=== PATIENT | female | born 1995 | race Caucasian/White ===

== ENCOUNTER 2017-10-10 12:18 | Inpatient (IN) | payer BC ==
[2017-10-10] MEDS ORDERED: Sodium Chloride 0.9% 10 ML Syringe FLUSH PRN (20:46)
[2017-10-10] MEDS ORDERED: Nalbuphine 20 MG/1 ML Amp IVPUSH PRN (20:46)
[2017-10-10] MEDS: Lactated Ringers 1,000 ML IV SCH ×2 (21:30→23:11)
[2017-10-11] MEDS ORDERED: diphenhydrAMINE 50 MG/ML SDV IVPUSH PRN (05:57)
[2017-10-11] MEDS ORDERED: fentaNYL 100 MCG/2 ML SDV EPIDUR PRN (05:57)
[2017-10-11] MEDS ORDERED: fentaNYL 100 MCG/2 ML SDV ONE (05:58)
[2017-10-11] MEDS ORDERED: Bupivacaine/fentaNYL/NS 100 ML Bag EPIDUR SCH (06:00)
--- NOTE | 2017-10-11 06:25 | PCM.PREANE ---
Preanesthetic Assessment - Anesthesia/Transfusion/Family Hx Anesthesia History: Prior Anesthesia Without Reaction Family History of Anesthesia Reaction: No Transfusion History: No Prior Transfusion(s) - Review of Systems General: Malaise Pulmonary: No Symptoms Cardiovascular: No Symptoms Gastrointestinal: No Symptoms Neurological: No Symptoms Other: Reports: Anxiety - Physical Assessment Pulse: 68 O2 Sat by Pulse Oximetry: 98 Respiratory Rate: 16 Blood Pressure: 140/60 Temperature: 36.6 C Vital Signs: Last Vital Signs Temp 36.6 C 10/10/17 20:47 Pulse 81 10/10/17 20:47 Resp 16 10/10/17 20:47 BP 115/75 10/10/17 20:47 Pulse Ox 98 10/10/17 20:47 Height: 1.57 m Weight: 111.669 kg ASA Class: 2 Mental Status: Alert & Oriented x3 Airway Class: Mallampati = 2 Dentition: Reports: Normal Dentition Thyro-Mental Finger Breadths: 3 Mouth Opening Finger Breadths: 3 ROM/Head Extension: Full Lungs: Clear to Auscultation, Normal Respiratory Effort Cardiovascular: Regular Rate, Regular Rhythm - Lab Values: Laboratory Last Values WBC 13.53 K/mm3 (3.98-10.04) H 10/10/17 21:12 RBC 4.43 M/mm3 (3.98-5.22) 10/10/17 21:12 Hgb 12.3 gm/L (11.2-15.7) 10/10/17 21:12 Hct 37.2 % (34.1-44.9) 10/10/17 21:12 MCV 84.0 fl (79.4-94.8) 10/10/17 21:12 MCH 27.8 pg (25.6-32.2) 10/10/17 21:12 MCHC 33.1 g/dl (32.2-35.5) 10/10/17 21:12 RDW Std Deviation 44.0 fL (36.4-46.3) 10/10/17 21:12 Plt Count 291 K/mm3 (182-369) 10/10/17 21:12 MPV 11.0 fl (9.4-12.3) 10/10/17 21:12 Blood Type AB POSITIVE 10/10/17 21:12 Gel Antibody Screen Negative 10/10/17 21:12 - Allergies Allergies/Adverse Reactions: Allergies Allergy/AdvReac Type Severity Reaction Status Date / Time No Known Allergies Allergy Verified 10/10/17 20:42 - Anesthesia Plan Pre-Op Medication Ordered: None - Acknowledgements Anesthesia Type Planned: Epidural Pt an Appropriate Candidate for the Planned Anesthesia: Yes Alternatives and Risks of Anesthesia Discussed w Pt/Guardian: Yes Pt/Guardian Understands and Agrees with Anesthesia Plan: Yes PreAnesthesia Questionnaire HEENT History: Reports: Other (See Below) Other HEENT History: wears glasses Gastrointestinal History: Reports: GERD 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: , 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 Psychiatric History: Reports: Anxiety Other Psychiatric History: denies depression - Past Surgical History HEENT Surgical History: Reports: Tonsillectomy - SUBSTANCE USE Smoking Status *Q: Never Smoker Tobacco Use Within Last Twelve Months: No Second Hand Smoke Exposure: No Recreational Drug Use History: No - CURRENT (IN HOUSE) MEDS Current Meds: Current Medications Diphenhydramine HCl (Benadryl) 25 mg IVPUSH Q6H PRN PRN Reason: Itching Ephedrine Sulfate (Ephedrine Sulfate) 5 mg IVPUSH ASDIRECTED PRN PRN Reason: HYPOTENTSION Fentanyl (Sublimaze) 100 mcg EPIDUR Q3H PRN PRN Reason: PAIN Fentanyl/Bupivacaine HCl (Fentanyl/Bupivacaine/Ns 2 Mcg-0.125% 100 Ml) 100 ml EPIDUR ASDIRECTED CECILE Last Admin: 10/11/17 06:14 Dose: 100 ml Lactated Ringer's (Ringers, Lactated) 1,000 mls @ 125 mls/hr IV ASDIRECTED CECILE Last Admin: 10/10/17 23:11 Dose: 125 mls/hr Oxytocin 20 unit/ Lactated (Ringer's) 1,002 mls @ 6.01 mls/hr IV TITRATE CECILE; 2 MUNITS/MIN PRN Reason: Protocol Nalbuphine HCl (Nubain) 10 mg IVPUSH Q2H PRN PRN Reason: Pain (moderate 4-6) Sodium Chloride (Saline Flush) 10 ml FLUSH ASDIRECTED PRN PRN Reason: Keep Vein Open Discontinued Medications Fentanyl (Sublimaze) Confirm Administered Dose 100 mcg .ROUTE .STK-MED ONE Stop: 10/11/17 05:59 Last Admin: 10/11/17 06:13 Dose: 100 mcg
[2017-10-11] MEDS: Lactated Ringers 1,000 ML IV SCH ×4 (06:51→10:39)
[2017-10-11] MEDS: ePHEDrine 50 MG/ML SDV IVPUSH PRN ×2 (07:04→07:19)
--- NOTE | 2017-10-11 08:07 | PCM.LDHP ---
L&D History of Present Illness - General Date of Service: 10/11/17 Admit Problem/Dx: Patient Status Order with Admit Dx/Problem 10/10/17 20:47 Patient Status [ADT] Routine Admission Diagnosis/Problem Admission Diagnosis/Problem Source of Information: Patient History Limitations: Reports: No Limitations - History of Present Illness Introduction:: 22-year-old MALISSA 10/05/17 at 40 weeks and 5 days admitted for induction now 40 weeks and 6 days. GBS is negative cervix this morning at time of amniotomy at 00 753 was 5 cm dilated 100% effaced anterior soft 0 station clear fluid category 1 heart rate. See record for labs. 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 : 3 Para: 0 (0020) Psychiatric History: Reports: Anxiety Other Psychiatric History: denies depression - Past Surgical History HEENT Surgical History: Reports: Tonsillectomy Social & Family History - Family History Family Medical History: Noncontributory - Tobacco Use Smoking Status *Q: Never Smoker Second Hand Smoke Exposure: No - Caffeine Use Caffeine Use: Reports: Coffee Caffeine Use Comment: one per day - Recreational Drug Use Recreational Drug Use: No H&P Review of Systems - Review of Systems: Review Of Systems: See Below General: Reports: No Symptoms HEENT: Reports: No Symptoms Pulmonary: Reports: No Symptoms Cardiovascular: Reports: No Symptoms Gastrointestinal: Reports: No Symptoms Genitourinary: Reports: No Symptoms Musculoskeletal: Reports: No Symptoms Skin: Reports: No Symptoms Psychiatric: Reports: No Symptoms Neurological: Reports: No Symptoms Hematologic/Lymphatic: Reports: No Symptoms Immunologic: Reports: No Symptoms L&D Exam - Exam Exam: See Below - Vital Signs Vital Signs: Last Vital Signs Temp 97.9 F 10/11/17 06:24 Pulse 68 10/11/17 06:24 Resp 16 10/11/17 06:24 BP 140/60 10/11/17 06:24 Pulse Ox 98 10/11/17 06:24 Weight: 246 lb 3 oz - OB Specific Fundal Height In cm: 39 Contraction Duration (sec): 60 Contraction Frequency (min): 5 Contraction Intensity: Moderate Movement: Active Heart Tones: Present Heart Tones per Min: 150 Heart Rate (FHR) Variability: Moderate (6-25 bmp) Presentation: Vertex - Hodges Score Hodges Score Cervix Position: Anterior Hodges Score Consistency: Soft Hodges Score Effacement: >80% Hodges Score Dilation: > 5 cm Hodges Score 's Station: -1 ,0 Hodges Score Total: 12 - Exam General: Alert, Oriented HEENT: Conjunctiva Clear, Mucosa Moist & Nye, TMs Clear, PERRLA Neck: Supple, Trachea Midline Lungs: Clear to Auscultation, Normal Respiratory Effort Cardiovascular: Regular Rate, Regular Rhythm GI/Abdominal Exam: Normal Bowel Sounds, Soft, Non-Tender, No Organomegaly, No Distention, No Abnormal Bruit, No Mass, Pelvis Stable Genitourinary: Normal external exam, Normal bimanual exam, Normal speculum exam Extremities: Normal Inspection, Normal Range of Motion, Non-Tender, No Pedal Edema, Normal Capillary Refill Skin: Warm, Dry, Intact Neurological: Reflexes Equal Bilateral Psychiatric: Alert, Normal Affect, Normal Mood - Patient Data Lab Results Last 24 hrs: Laboratory Results - last 24 hr 10/10/17 10/10/17 Range/Units 21:12 21:12 WBC 13.53 H (3.98-10.04) K/mm3 RBC 4.43 (3.98-5.22) M/mm3 Hgb 12.3 (11.2-15.7) gm/L Hct 37.2 (34.1-44.9) % MCV 84.0 (79.4-94.8) fl MCH 27.8 (25.6-32.2) pg MCHC 33.1 (32.2-35.5) g/dl RDW Std Deviation 44.0 (36.4-46.3) fL Plt Count 291 (182-369) K/mm3 MPV 11.0 (9.4-12.3) fl Blood Type AB POSITIVE Gel Antibody Screen Negative Result Diagrams: 10/10/17 21:12 - Problem List (1) 40 weeks gestation of SNOMED Code(s): 56976008 ICD Code: Z3A.40 - 40 WEEKS GESTATION OF Status: Acute Current Visit: Yes Problem List Initiated/Reviewed/Updated: No Orders Last 24hrs: Active Orders 24 hr Category Date Time Status Patient Status [ADT] Routine ADT 10/10/17 20:47 Active Activity as Tolerated [RC] PFP Care 10/10/17 20:47 Active Communication Order [RC] ASDIRECTED Care 10/10/17 20:47 Active Communication Order [RC] ASDIRECTED Care 10/11/17 05:57 Active Cooling Warming Measures [RC] ASDIRECTED Care 10/11/17 05:57 Active Notify Provider [RC] ASDIRECTED Care 10/11/17 05:57 Active Notify Provider [RC] PFP Care 10/10/17 20:47 Active Notify Provider [RC] PRN Care 10/10/17 20:47 Active Oxygen Therapy [RC] ASDIRECTED Care 10/11/17 05:57 Active Peripheral IV Care [RC] . DIRECTED Care 10/10/17 20:48 Active Pulse Oximetry [RC] ASDIRECTED Care 10/11/17 05:57 Active Urinary Catheter Assessment [RC] ASDIRECTED Care 10/10/17 20:46 Active Verify Patient Consent Obtain [RC] ASDIRECTED Care 10/11/17 05:57 Active Vital Signs [RC] PER UNIT ROUTINE Care 10/10/17 20:47 Active Vital Signs [RC] Q1H Care 10/11/17 05:57 Active Bupivacaine/fentaNYL/NS [fentaNYL/Bupivacaine/NS 2 MCG- Med 10/11/17 06:00 Active 0.125% 100 ML] 100 ml EPIDUR ASDIRECTED Lactated Ringers [Ringers, Lactated] 1,000 ml Med 10/10/17 21:00 Active IV ASDIRECTED Nalbuphine [Nubain] Med 10/10/17 20:46 Active 10 mg IVPUSH Q2H PRN Oxytocin [Pitocin] 20 unit Med 10/10/17 21:00 Active Lactated Ringers [Ringers, Lactated] 1,000 ml IV TITRATE Sodium Chloride 0.9% [Saline Flush] Med 10/10/17 20:46 Active 10 ml FLUSH ASDIRECTED PRN diphenhydrAMINE [Benadryl] Med 10/11/17 05:57 Active 25 mg IVPUSH Q6H PRN ePHEDrine [ePHEDrine Sulfate] Med 10/11/17 05:57 Active 5 mg IVPUSH ASDIRECTED PRN fentaNYL [Sublimaze] Med 10/11/17 05:57 Active 100 mcg EPIDUR Q3H PRN Electronic Heart Tones Ext w TOCO [WOMSER] Oth 10/10/17 20:47 Ordered Routine Electronic Heart Tones Internal [WOMSER] Per Unit Oth 10/10/17 20:47 Ordered Routine Peripheral IV Insertion Adult [OM.PC] Routine Oth 10/10/17 20:47 Ordered Resuscitation Status Routine Resus Stat 10/10/17 20:46 Ordered Medication Orders Diphenhydramine HCl (Benadryl) 25 mg IVPUSH Q6H PRN PRN Reason: Itching Ephedrine Sulfate (Ephedrine Sulfate) 5 mg IVPUSH ASDIRECTED PRN PRN Reason: HYPOTENTSION Last Admin: 10/11/17 07:19 Dose: 5 mg Admin: 10/11/17 07:04 Dose: 5 mg Fentanyl (Sublimaze) 100 mcg EPIDUR Q3H PRN PRN Reason: PAIN Fentanyl/Bupivacaine HCl (Fentanyl/Bupivacaine/Ns 2 Mcg-0.125% 100 Ml) 100 ml EPIDUR ASDIRECTED CECILE Last Admin: 10/11/17 06:14 Dose: 100 ml Lactated Ringer's (Ringers, Lactated) 1,000 mls @ 125 mls/hr IV ASDIRECTED CECILE Last Admin: 10/11/17 07:24 Dose: 999 mls/hr Infusion: 10/11/17 07:24 Dose: 125 mls/hr Admin: 10/11/17 06:51 Dose: 125 mls/hr Infusion: 10/11/17 06:51 Dose: 125 mls/hr Admin: 10/10/17 23:11 Dose: 125 mls/hr Infusion: 10/10/17 23:11 Dose: 125 mls/hr Admin: 10/10/17 21:30 Dose: 125 mls/hr Oxytocin 20 unit/ Lactated (Ringer's) 1,002 mls @ 6.01 mls/hr IV TITRATE CECILE; 2 MUNITS/MIN PRN Reason: Protocol Nalbuphine HCl (Nubain) 10 mg IVPUSH Q2H PRN PRN Reason: Pain (moderate 4-6) Sodium Chloride (Saline Flush) 10 ml FLUSH ASDIRECTED PRN PRN Reason: Keep Vein Open
[2017-10-11] MEDS ORDERED: Bupivacaine 0.25% 10 ML SDV ONE (10:00)
--- NOTE | 2017-10-11 12:06 | PCM.SN ---
- Free Text/Narrative Note: Patient is complete and pushing.
[2017-10-11] MEDS ORDERED: Misoprostol 200 MCG Tab ONE (12:22)
--- NOTE | 2017-10-11 12:35 | PCM.DEL ---
L & D Note - General Info Date of Service: 10/11/17 Mother's Due Date: 10/05/17 - Delivery Note Labor: Spontaneous, Augmented by ARM, Augmented by Oxytocin Cervical Ripening Method: Misoprostil Delivery Outcome: Livebirth (Female liveborn at 1218 hrs. on Monday10/11/17 right occiput posterior) Infant Delivery Method: Spontaneous Vaginal Delivery-Single Delivery Mode: Spontaneous Presentation: Right Occiput Posterior (ROP) Nuchal Cord: None Prep: Povidone-Iodine (Betadine Anesthesia Type: Epidural Amniotic Fluid Description: Meconium Stained Episiotomy Type: None Laceration: 1st Degree (Bilateral medial labia minora not bleeding not sutured at level of urethral meatus) Placenta: Intact, Spontaneous (Three-vessel cord intact central cord insertion examined discarded delivered at 1221 hrs. Monday10/11/17 [place]) Cord: 3 Vessels Estimated Blood Loss: 500 (cytotec 200 mcg x2 buccal) Resuscitation Needed: No [place]: Suctioned, Bulb Syringe, Stimulated, Warmed, [place] Used, Warmer Used Provider: Rylan Alcantar Score 1 min: 8 Score 5 min: 9 - Patient Data Vitals - Most Recent: Last Vital Signs Temp 97.9 F 10/11/17 06:24 Pulse 68 10/11/17 06:24 Resp 16 10/11/17 06:24 BP 140/60 10/11/17 06:24 Pulse Ox 98 10/11/17 06:24 Weight - Most Recent: 246 lb 3 oz Lab Results Last 24 Hours: Laboratory Results - last 24 hr 10/10/17 10/10/17 Range/Units 21:12 21:12 WBC 13.53 H (3.98-10.04) K/mm3 RBC 4.43 (3.98-5.22) M/mm3 Hgb 12.3 (11.2-15.7) gm/L Hct 37.2 (34.1-44.9) % MCV 84.0 (79.4-94.8) fl MCH 27.8 (25.6-32.2) pg MCHC 33.1 (32.2-35.5) g/dl RDW Std Deviation 44.0 (36.4-46.3) fL Plt Count 291 (182-369) K/mm3 MPV 11.0 (9.4-12.3) fl Blood Type AB POSITIVE Gel Antibody Screen Negative Med Orders - Current: Current Medications Diphenhydramine HCl (Benadryl) 25 mg IVPUSH Q6H PRN PRN Reason: Itching Ephedrine Sulfate (Ephedrine Sulfate) 5 mg IVPUSH ASDIRECTED PRN PRN Reason: HYPOTENTSION Last Admin: 10/11/17 07:19 Dose: 5 mg Fentanyl (Sublimaze) 100 mcg EPIDUR Q3H PRN PRN Reason: PAIN Fentanyl/Bupivacaine HCl (Fentanyl/Bupivacaine/Ns 2 Mcg-0.125% 100 Ml) 100 ml EPIDUR ASDIRECTED CECILE Last Admin: 10/11/17 06:14 Dose: 100 ml Lactated Ringer's (Ringers, Lactated) 1,000 mls @ 125 mls/hr IV ASDIRECTED CECILE Last Admin: 10/11/17 10:39 Dose: 300 mls/hr Oxytocin 20 unit/ Lactated (Ringer's) 1,002 mls @ 6.01 mls/hr IV TITRATE CECILE; 2 MUNITS/MIN PRN Reason: Protocol Last Titration: 10/11/17 09:46 Dose: 6 munits/min, 18.03 mls/hr Oxytocin 20 unit/ Lactated (Ringer's) 1,002 mls @ 6.01 mls/hr IV TITRATE CECILE; 2 MUNITS/MIN PRN Reason: Protocol Nalbuphine HCl (Nubain) 10 mg IVPUSH Q2H PRN PRN Reason: Pain (moderate 4-6) Sodium Chloride (Saline Flush) 10 ml FLUSH ASDIRECTED PRN PRN Reason: Keep Vein Open Discontinued Medications Fentanyl (Sublimaze) Confirm Administered Dose 100 mcg .ROUTE .STK-MED ONE Stop: 10/11/17 05:59 Last Admin: 10/11/17 06:13 Dose: 100 mcg Misoprostol (Cytotec) Confirm Administered Dose 400 mcg .ROUTE .STK-MED ONE Stop: 10/11/17 12:23 - Problem List & Annotations (1) 40 weeks gestation of SNOMED Code(s): 23937001 Code(s): Z3A.40 - 40 WEEKS GESTATION OF Status: Acute Current Visit: Yes (2) Occiput posterior presentation of fetus SNOMED Code(s): 56892720 Code(s): O64.0XX0 - OBSTRUCTED LABOR DUE TO INCMPL ROTATION OF HEAD, UNSP Status: Acute Current Visit: Yes (3) Meconium stained amniotic fluid, delivered, current hospitalization SNOMED Code(s): 545704095 Code(s): O77.0 - LABOR AND DELIVERY COMPLICATED BY MECONIUM IN AMNIOTIC FLUID Status: Acute Current Visit: Yes - Problem List Review Problem List Initiated/Reviewed/Updated: No - My Orders Last 24 Hours: My Active Orders 10/10/17 20:46 Urinary Catheter Assessment [RC] ASDIRECTED Nalbuphine [Nubain] 10 mg IVPUSH Q2H PRN Sodium Chloride 0.9% [Saline Flush] 10 ml FLUSH ASDIRECTED PRN Resuscitation Status Routine 10/10/17 20:47 Patient Status [ADT] Routine Activity as Tolerated [RC] PFP Communication Order [RC] ASDIRECTED Notify Provider [RC] PFP Notify Provider [RC] PRN Vital Signs [RC] PER UNIT ROUTINE Electronic Heart Tones Ext w TOCO [WOMSER] Routine Electronic Heart Tones Internal [WOMSER] Per Unit Routine Peripheral IV Insertion Adult [OM.PC] Routine 10/10/17 20:48 Peripheral IV Care [RC] . DIRECTED 10/10/17 21:00 Lactated Ringers [Ringers, Lactated] 1,000 ml IV ASDIRECTED Oxytocin [Pitocin] 20 unit Lactated Ringers [Ringers, Lactated] 1,000 ml IV TITRATE 10/11/17 08:15 Oxytocin [Pitocin] 20 unit Lactated Ringers [Ringers, Lactated] 1,000 ml IV TITRATE
[2017-10-11] MEDS ORDERED: Docusate Sodium 100 MG Cap PO PRN (12:41)
[2017-10-11] MEDS ORDERED: Benzocaine/Menthol 20%-0.5% Spray 56 GM Canister TOP PRN (12:41)
[2017-10-11] MEDS ORDERED: Acetaminophen 325 MG Tab PO PRN (12:41)
[2017-10-11] MEDS ORDERED: Witch Hazel Medicated Pads 100/Jar TOP PRN (12:41)
[2017-10-11] MEDS ORDERED: Lanolin 100% Cream 7 GM Tube TOP PRN (12:41)
[2017-10-11] MEDS ORDERED: Misoprostol 200 MCG Tab PO ONE (13:20)
[2017-10-11] MEDS: Ibuprofen 600 MG Tab PO PRN (16:15)
[2017-10-12] MEDS: Ibuprofen 600 MG Tab PO PRN ×3 (03:08→19:21)
--- NOTE | 2017-10-12 08:23 | PCM48HPAN ---
Post Anesthesia Note - EVALUATION WITHIN 48HRS OF ANESTHETIC Vital Signs in Normal Range: Yes Patient Participated in Evaluation: Yes Respiratory Function Stable: Yes Airway Patent: Yes Cardiovascular Function Stable: Yes Hydration Status Stable: Yes Pain Control Satisfactory: Yes Nausea and Vomiting Control Satisfactory: Yes Mental Status Recovered: Yes - COMMENTS/OBSERVATIONS Free Text/Narrative:: Patient doing well resting in bed. Denies any backpain, residual numbenss/ tingling to LE, or headaches.
--- NOTE | 2017-10-12 08:44 | PCM.SN ---
- Free Text/Narrative Note: day 1 Afebrile, no cough or chest congestion, uterus involuting normally, no heavy vaginal bleeding, no leg cramping. Probably home tomorrow.
[2017-10-13] MEDS: Ibuprofen 600 MG Tab PO PRN (06:59)
--- NOTE | 2017-10-13 07:05 | PCM.DCSUM1 ---
Discharge Summary - Hospital Course Free Text/Narrative:: [facility] LIVE L/D Delivery Note Patient Name: DAPHNEY WHITE Date of : 89 Patient Status: Inpatient Attending Provider: Rylan Alcantar Date: 10/11/17 12:29 Initialization Date: 10/11/17 12:29 L & D Note - General Info Date of Service: 10/11/17 Mother's Due Date: 10/05/17 - Delivery Note Labor: Spontaneous, Augmented by ARM, Augmented by Oxytocin Cervical Ripening Method: Misoprostil Delivery Outcome: Livebirth (Female liveborn at 1218 hrs. on Monday10/11/17 right occiput posterior) Delivery Method: Spontaneous Vaginal Delivery-Single Delivery Mode: Spontaneous Presentation: Right Occiput Posterior (ROP) Nuchal Cord: None Prep: Povidone-Iodine (Betadine Anesthesia Type: Epidural Amniotic Fluid Description: Meconium Stained Episiotomy Type: None Laceration: 1st Degree (Bilateral medial labia minora not bleeding not sutured at level of urethral meatus) Placenta: Intact, Spontaneous (Three-vessel cord intact central cord insertion examined discarded delivered at 1221 hrs. Monday10/11/17 Daina) Cord: 3 Vessels Estimated Blood Loss: 500 (cytotec 200 mcg x2 buccal) Resuscitation Needed: No : Suctioned, Bulb Syringe, Stimulated, Warmed, [place] Used, Warmer Used Provider: Rylan Alcantar Score 1 min: 8 Score 5 min: 9 - Patient Data Vitals - Most Recent: Last Vital Signs Temp 97.9 F 10/11/17 06:24 Pulse 68 10/11/17 06:24 Resp 16 10/11/17 06:24 BP 140/60 10/11/17 06:24 Pulse Ox 98 10/11/17 06:24 Weight - Most Recent: 246 lb 3 oz Lab Results Last 24 Hours: Laboratory Results - last 24 hr 10/10/17 10/10/17 Range/Units 21:12 21:12 WBC 13.53 H (3.98-10.04) K/mm3 RBC 4.43 (3.98-5.22) M/mm3 Hgb 12.3 (11.2-15.7) gm/L Hct 37.2 (34.1-44.9) % MCV 84.0 (79.4-94.8) fl MCH 27.8 (25.6-32.2) pg MCHC 33.1 (32.2-35.5) g/dl RDW Std Deviation 44.0 (36.4-46.3) fL Plt Count 291 (182-369) K/mm3 MPV 11.0 (9.4-12.3) fl Blood Type AB POSITIVE Gel Antibody Screen Negative Med Orders - Current: Current Medications Diphenhydramine HCl (Benadryl) 25 mg IVPUSH Q6H PRN PRN Reason: Itching Ephedrine Sulfate (Ephedrine Sulfate) 5 mg IVPUSH ASDIRECTED PRN PRN Reason: HYPOTENTSION Last Admin: 10/11/17 07:19 Dose: 5 mg Fentanyl (Sublimaze) 100 mcg EPIDUR Q3H PRN PRN Reason: PAIN Fentanyl/Bupivacaine HCl (Fentanyl/Bupivacaine/Ns 2 Mcg-0.125% 100 Ml) 100 ml EPIDUR ASDIRECTED CECILE Last Admin: 10/11/17 06:14 Dose: 100 ml Lactated Ringer's (Ringers, Lactated) 1,000 mls @ 125 mls/hr IV ASDIRECTED CECILE Last Admin: 10/11/17 10:39 Dose: 300 mls/hr Oxytocin 20 unit/ Lactated (Ringer's) 1,002 mls @ 6.01 mls/hr IV TITRATE CECILE; 2 MUNITS/MIN PRN Reason: Protocol Last Titration: 10/11/17 09:46 Dose: 6 munits/min, 18.03 mls/hr Oxytocin 20 unit/ Lactated (Ringer's) 1,002 mls @ 6.01 mls/hr IV TITRATE CECILE; 2 MUNITS/MIN PRN Reason: Protocol Nalbuphine HCl (Nubain) 10 mg IVPUSH Q2H PRN PRN Reason: Pain (moderate 4-6) Sodium Chloride (Saline Flush) 10 ml FLUSH ASDIRECTED PRN PRN Reason: Keep Vein Open Discontinued Medications Fentanyl (Sublimaze) Confirm Administered Dose 100 mcg .ROUTE .STK-MED ONE Stop: 10/11/17 05:59 Last Admin: 10/11/17 06:13 Dose: 100 mcg Misoprostol (Cytotec) Confirm Administered Dose 400 mcg .ROUTE .Deal In [place]-MED ONE Stop: 10/11/17 12:23 - Problem List & Annotations (1) 40 weeks gestation of SNOMED Code(s): 65319493 Code(s): Z3A.40 - 40 WEEKS GESTATION OF Status: Acute Current Visit: Yes (2) Occiput posterior presentation of fetus SNOMED Code(s): 88076973 Code(s): O64.0XX0 - OBSTRUCTED LABOR DUE TO INCMPL ROTATION OF HEAD, UNSP Status: Acute Current Visit: Yes (3) Meconium stained amniotic fluid, delivered, current hospitalization SNOMED Code(s): 500218264 Code(s): O77.0 - LABOR AND DELIVERY COMPLICATED BY MECONIUM IN AMNIOTIC FLUID Status: Acute Current Visit: Yes - Problem List Review Problem List Initiated/Reviewed/Updated: No - My Orders Last 24 Hours: My Active Orders 10/10/17 20:46 Urinary Catheter Assessment [RC] ASDIRECTED Nalbuphine [Nubain] 10 mg IVPUSH Q2H PRN Sodium Chloride 0.9% [Saline Flush] 10 ml FLUSH ASDIRECTED PRN Resuscitation Status Routine 10/10/17 20:47 Patient Status [ADT] Routine Activity as Tolerated [RC] PFP Communication Order [RC] ASDIRECTED Notify Provider [RC] PFP Notify Provider [RC] PRN Vital Signs [RC] PER UNIT ROUTINE Electronic Heart Tones Ext w TOCO [WOMSER] Routine Electronic Heart Tones Internal [WOMSER] Per Unit Routine Peripheral IV Insertion Adult [OM.PC] Routine 10/10/17 20:48 Peripheral IV Care [RC] . DIRECTED 10/10/17 21:00 Lactated Ringers [Ringers, Lactated] 1,000 ml IV ASDIRECTED Oxytocin [Pitocin] 20 unit Lactated Ringers [Ringers, Lactated] 1,000 ml IV TITRATE 10/11/17 08:15 Oxytocin [Pitocin] 20 unit Lactated Ringers [Ringers, Lactated] 1,000 ml IV TITRATE HPI Initial Comments: [facility] LIVE L/D Delivery Note Patient Name: DAPHNEY WHITE Date of : 89 Patient Status: Inpatient Attending Provider: Rylan Alcantar Date: 10/11/17 12:29 Initialization Date: 10/11/17 12:29 L & D Note - General Info Date of Service: 10/11/17 Mother's Due Date: 10/05/17 - Delivery Note Labor: Spontaneous, Augmented by ARM, Augmented by Oxytocin Cervical Ripening Method: Misoprostil Delivery Outcome: Livebirth (Female liveborn at 1218 hrs. on Monday10/11/17 right occiput posterior) Infant Delivery Method: Spontaneous Vaginal Delivery-Single Delivery Mode: Spontaneous Presentation: Right Occiput Posterior (ROP) Nuchal Cord: None Prep: Povidone-Iodine (Betadine Anesthesia Type: Epidural Amniotic Fluid Description: Meconium Stained Episiotomy Type: None Laceration: 1st Degree (Bilateral medial labia minora not bleeding not sutured at level of urethral meatus) Placenta: Intact, Spontaneous (Three-vessel cord intact central cord insertion examined discarded delivered at 1221 hrs. Monday10/11/17 Daina) Cord: 3 Vessels Estimated Blood Loss: 500 (cytotec 200 mcg x2 buccal) Resuscitation Needed: No Center Cross: Suctioned, Bulb Syringe, Stimulated, Warmed, [place] Used, Warmer Used Provider: Rylan Alcantar Score 1 min: 8 Score 5 min: 9 - Patient Data Vitals - Most Recent: Last Vital Signs Temp 97.9 F 10/11/17 06:24 Pulse 68 10/11/17 06:24 Resp 16 10/11/17 06:24 BP 140/60 10/11/17 06:24 Pulse Ox 98 10/11/17 06:24 Weight - Most Recent: 246 lb 3 oz Lab Results Last 24 Hours: Laboratory Results - last 24 hr 10/10/17 10/10/17 Range/Units 21:12 21:12 WBC 13.53 H (3.98-10.04) K/mm3 RBC 4.43 (3.98-5.22) M/mm3 Hgb 12.3 (11.2-15.7) gm/L Hct 37.2 (34.1-44.9) % MCV 84.0 (79.4-94.8) fl MCH 27.8 (25.6-32.2) pg MCHC 33.1 (32.2-35.5) g/dl RDW Std Deviation 44.0 (36.4-46.3) fL Plt Count 291 (182-369) K/mm3 MPV 11.0 (9.4-12.3) fl Blood Type AB POSITIVE Gel Antibody Screen Negative Med Orders - Current: Current Medications Diphenhydramine HCl (Benadryl) 25 mg IVPUSH Q6H PRN PRN Reason: Itching Ephedrine Sulfate (Ephedrine Sulfate) 5 mg IVPUSH ASDIRECTED PRN PRN Reason: HYPOTENTSION Last Admin: 10/11/17 07:19 Dose: 5 mg Fentanyl (Sublimaze) 100 mcg EPIDUR Q3H PRN PRN Reason: PAIN Fentanyl/Bupivacaine HCl (Fentanyl/Bupivacaine/Ns 2 Mcg-0.125% 100 Ml) 100 ml EPIDUR ASDIRECTED CECILE Last Admin: 10/11/17 06:14 Dose: 100 ml Lactated Ringer's (Ringers, Lactated) 1,000 mls @ 125 mls/hr IV ASDIRECTED CECILE Last Admin: 10/11/17 10:39 Dose: 300 mls/hr Oxytocin 20 unit/ Lactated (Ringer's) 1,002 mls @ 6.01 mls/hr IV TITRATE CECILE; 2 MUNITS/MIN PRN Reason: Protocol Last Titration: 10/11/17 09:46 Dose: 6 munits/min, 18.03 mls/hr Oxytocin 20 unit/ Lactated (Ringer's) 1,002 mls @ 6.01 mls/hr IV TITRATE CECILE; 2 MUNITS/MIN PRN Reason: Protocol Nalbuphine HCl (Nubain) 10 mg IVPUSH Q2H PRN PRN Reason: Pain (moderate 4-6) Sodium Chloride (Saline Flush) 10 ml FLUSH ASDIRECTED PRN PRN Reason: Keep Vein Open Discontinued Medications Fentanyl (Sublimaze) Confirm Administered Dose 100 mcg .ROUTE .STK-MED ONE Stop: 10/11/17 05:59 Last Admin: 10/11/17 06:13 Dose: 100 mcg Misoprostol (Cytotec) Confirm Administered Dose 400 mcg .ROUTE .STK-MED ONE Stop: 10/11/17 12:23 - Problem List & Annotations (1) 40 weeks gestation of SNOMED Code(s): 25968808 Code(s): Z3A.40 - 40 WEEKS GESTATION OF Status: Acute Current Visit: Yes (2) Occiput posterior presentation of fetus SNOMED Code(s): 69241257 Code(s): O64.0XX0 - OBSTRUCTED LABOR DUE TO INCMPL ROTATION OF HEAD, UNSP Status: Acute Current Visit: Yes (3) Meconium stained amniotic fluid, delivered, current hospitalization SNOMED Code(s): 433119891 Code(s): O77.0 - LABOR AND DELIVERY COMPLICATED BY MECONIUM IN AMNIOTIC FLUID Status: Acute Current Visit: Yes - Problem List Review Problem List Initiated/Reviewed/Updated: No - My Orders Last 24 Hours: My Active Orders 10/10/17 20:46 Urinary Catheter Assessment [RC] ASDIRECTED Nalbuphine [Nubain] 10 mg IVPUSH Q2H PRN Sodium Chloride 0.9% [Saline Flush] 10 ml FLUSH ASDIRECTED PRN Resuscitation Status Routine 10/10/17 20:47 Patient Status [ADT] Routine Activity as Tolerated [RC] PFP Communication Order [RC] ASDIRECTED Notify Provider [RC] PFP Notify Provider [RC] PRN Vital Signs [RC] PER UNIT ROUTINE Electronic Heart Tones Ext w TOCO [WOMSER] Routine Electronic Heart Tones Internal [WOMSER] Per Unit Routine Peripheral IV Insertion Adult [OM.PC] Routine 10/10/17 20:48 Peripheral IV Care [RC] . DIRECTED 10/10/17 21:00 Lactated Ringers [Ringers, Lactated] 1,000 ml IV ASDIRECTED Oxytocin [Pitocin] 20 unit Lactated Ringers [Ringers, Lactated] 1,000 ml IV TITRATE 10/11/17 08:15 Oxytocin [Pitocin] 20 unit Lactated Ringers [Ringers, Lactated] 1,000 ml IV TITRATE Brief History: [facility] LIVE . L/D Delivery Note. Patient Name: DAPHNEY WHITE [facility] Record Number: [id number]. Date of : Patient Status: Inpatient. Attending Provider: Rylan Alcantar Number: [id number]. Date: 10/11/17 12:29Initialization Date: 10/11/17 12:29. L & D Note. - General Info. Date of Service: 10/11/17. Mother's Due Date: 10/05/17. - Delivery Note. Labor: Spontaneous, Augmented by ARM, Augmented by Oxytocin. Cervical Ripening Method: Misoprostil. Delivery Outcome: Livebirth ( Female liveborn at 1218 hrs. on Monday10/11/17 right occiput posterior). Infant Delivery Method: Spontaneous Vaginal Delivery-Single. Infant Delivery Mode: Spontaneous. Presentation: Right Occiput Posterior (ROP). Nuchal Cord: None. Prep: Povidone-Iodine (Betadine. Anesthesia Type: Epidural. Amniotic Fluid Description: Meconium Stained. Episiotomy Type: None. Laceration: 1st Degree (Bilateral medial labia minora not bleeding not sutured at level of urethral meatus). Placenta: Intact, Spontaneous (Three-vessel cord intact central cord insertion examined discarded delivered at 1221 hrs. Monday10/11/17 Daina). Cord: 3 Vessels. Estimated Blood Loss: 500 ( cytotec 200 mcg x2 buccal). Resuscitation Needed: No. Center Cross: Suctioned, Bulb Syringe, Stimulated, Warmed, [place] Used, Warmer Used. Provider : Rylan Alcantar. Score 1 min: 8. Score 5 min: 9. - Patient Data. Vitals - Most Recent: Last Vital Signs. Temp 97.9 F 10/11/17 06:24. Pulse 68 10/11/17 06:24. Resp 16 10/11/17 06:24. BP 140/60 10/11/17 06:24. Pulse Ox 98 10/11/17 06:24. Weight - Most Recent: 246 lb 3 oz. Lab Results Last 24 Hours: Laboratory Results - last 24 hr. 10/10/1711Range/Units. 21:1221:12. WBC 13.53 H (3.98-10.04) K/mm3. RBC 4.43 (3.98-5.22) M/mm3. Hgb 12.3 (11.2-15.7) gm/L. Hct 37.2 (34.1-44.9) %. MCV 84.0 (79.4-94.8) fl. MCH 27.8 (25.6-32.2) pg. MCHC 33.1 (32.2-35.5) g/dl. RDW Std Deviation 44.0 (36.4-46.3) fL. Plt Count 291 (182-369) K/mm3. MPV 11.0 (9.4-12.3) fl. Blood Type AB POSITIVE. Gel Antibody Screen Negative. Med Orders - Current: Current Medications. Diphenhydramine HCl (Benadryl) 25 mg IVPUSH Q6H PRN. PRN Reason: Itching. Ephedrine Sulfate (Ephedrine Sulfate) 5 mg IVPUSH ASDIRECTED PRN. PRN Reason: HYPOTENTSION. Last Admin: 10/11/17 07:19 Dose: 5 mg. Fentanyl (Sublimaze) 100 mcg EPIDUR Q3H PRN. PRN Reason: PAIN. Fentanyl/Bupivacaine HCl (Fentanyl/Bupivacaine/Ns 2 Mcg-0.125% 100 Ml) 100 ml EPIDUR ASDIRECTED CECILE. Last Admin: 10/11/17 06:14 Dose: 100 ml. Lactated Ringer's (Ringers, Lactated) 1,000 mls @ 125 mls/hr IV ASDIRECTED CECILE. Last Admin: 10/11/17 10:39 Dose: 300 mls/hr. Oxytocin 20 unit/ Lactated (Ringer's) 1,002 mls @ 6.01 mls/hr IV TITRATE CECILE; 2 MUNITS/MIN. PRN Reason: Protocol. Last Titration: 10/11/17 09:46 Dose: 6 munits/min, 18.03 mls/hr. Oxytocin 20 unit/ Lactated (Ringer's) 1,002 mls @ 6.01 mls/hr IV TITRATE CECILE; 2 MUNITS/ MIN. PRN Reason: Protocol. Nalbuphine HCl (Nubain) 10 mg IVPUSH Q2H PRN. PRN Reason: Pain (moderate 4-6). Sodium Chloride (Saline Flush) 10 ml FLUSH ASDIRECTED PRN. PRN Reason: Keep Vein Open. Discontinued Medications. Fentanyl (Sublimaze) Confirm Administered Dose 100 mcg .ROUTE .STK-MED ONE. Stop: 10/11/17 05:59. Last Admin: 10/11/17 06:13 Dose: 100 mcg. Misoprostol ( Cytotec) Confirm Administered Dose 400 mcg .ROUTE .STK-MED ONE. Stop: 10/11/17 12:23. - Problem List & Annotations. (1) 40 weeks gestation of . SNOMED Code(s): 37977881. Code(s): Z3A.40 - 40 WEEKS GESTATION OF Status: Acute Current Visit: Yes. (2) Occiput posterior presentation of fetus. SNOMED Code(s): 05766532. Code(s): O64.0XX0 - OBSTRUCTED LABOR DUE TO INCMPL ROTATION OF HEAD, UNSP Status: Acute Current Visit: Yes. (3) Meconium stained amniotic fluid, delivered, current hospitalization. SNOMED Code(s): 726665253. Code(s): O77.0 - LABOR AND DELIVERY COMPLICATED BY MECONIUM IN AMNIOTIC FLUID Status: Acute Current Visit: Yes. - Problem List Review. Problem List Initiated/Reviewed/Updated: No. - My Orders. Last 24 Hours: My Active Orders. 10/10/17 20:46. Urinary Catheter Assessment [RC] ASDIRECTED. Nalbuphine [Nubain] 10 mg IVPUSH Q2H PRN. Sodium Chloride 0.9% [ Saline Flush] 10 ml FLUSH ASDIRECTED PRN. Resuscitation Status Routine. 20:47. Patient Status [ADT] Routine. Activity as Tolerated [RC] PFP. Communication Order [RC] ASDIRECTED. Notify Provider [RC] PFP. Notify Provider [RC] PRN. Vital Signs [RC] PER UNIT ROUTINE. Electronic Heart Tones Ext w TOCO [WOMSER] Routine. Electronic Heart Tones Internal [ WOMSER] Per Unit Routine. Peripheral IV Insertion Adult [OM.PC] Routine. 10/10 20:48. Peripheral IV Care [RC] . DIRECTED. 10/10/17 21:00. Lactated Ringers [Ringers, Lactated] 1,000 ml IV ASDIRECTED. Oxytocin [Pitocin] 20 unit Lactated Ringers [Ringers, Lactated] 1,000 ml IV TITRATE. 10/11/17 08:15. Oxytocin [Pitocin] 20 unit Lactated Ringers [Ringers, Lactated] 1,000 ml IV TITRATE - Discharge Data Discharge Date: 10/13/17 Discharge Disposition: Home, Self-Care 01 Condition: Good - Discharge Diagnosis/Problem(s) (1) 40 weeks gestation of SNOMED Code(s): 64711912 ICD Code: Z3A.40 - 40 WEEKS GESTATION OF Status: Acute Current Visit: Yes (2) Occiput posterior presentation of fetus SNOMED Code(s): 28512957 ICD Code: O64.0XX0 - OBSTRUCTED LABOR DUE TO INCMPL ROTATION OF HEAD, UNSP Status: Acute Current Visit: Yes Qualifiers: Fetus number: single or unspecified fetus Qualified Code(s): O64.0XX0 - Obstructed labor due to incomplete rotation of head, not applicable or unspecified (3) Meconium stained amniotic fluid, delivered, current hospitalization SNOMED Code(s): 847087808 ICD Code: O77.0 - LABOR AND DELIVERY COMPLICATED BY MECONIUM IN AMNIOTIC FLUID Status: Acute Current Visit: Yes - Patient Summary/Data Complications: None Consults: None Hospital Course: Uneventful - Patient Instructions Diet: Regular Diet as Tolerated Driving: Do Not Drive (48 hours) Showering/Bathing: May Shower Notify Provider of: Fever, Increased Pain, Swelling and Redness, Drainage, Nausea and/or Vomiting - Discharge Plan Home Medications: Home Meds Acetaminophen [Tylenol] 650 mg PO Q6H PRN tablet 10/13/17 [Rx] Benzocaine/Menthol [Dermoplast Pain Relief [place]] 1 spray TOP ASDIRECTED PRN canister 10/13/17 [Rx] Docusate Sodium [Colace] 100 mg PO BID PRN cap 10/13/17 [Rx] Ibuprofen [IJD: Ibuprofen] 600 mg PO Q6H PRN tablet 10/13/17 [Rx] Lanolin [Lansinoh HPA] 1 applic TOP ASDIRECTED PRN tube 10/13/17 [Rx] Witch Helen [Tucks] 1 pad TOP ASDIRECTED PRN pad 10/13/17 [Rx] Referrals: Rylan Alcantar MD [Primary Care Provider] - (2 weeks) - Discharge Summary/Plan Comment DC Time >30 min.: No - Patient Data Vitals - Most Recent: Last Vital Signs Temp 97.7 F 10/13/17 06:23 Pulse 77 10/13/17 06:23 Resp 15 10/13/17 06:23 BP 133/85 10/13/17 06:23 Pulse Ox 100 10/13/17 06:23 Weight - Most Recent: 246 lb 3 oz I&O - Last 24 hours: Intake & Output 10/12/17 10/13/17 10/13/17 22:59 06:59 14:59 Intake Total 0 Balance 0 Lab Results - Last 24 hrs: Laboratory Results - last 24 hr 10/12/17 Range/Units 06:56 WBC 11.98 H (3.98-10.04) K/mm3 RBC 3.63 L (3.98-5.22) M/mm3 Hgb 10.0 L (11.2-15.7) gm/L Hct 31.4 L (34.1-44.9) % MCV 86.5 (79.4-94.8) fl MCH 27.5 (25.6-32.2) pg MCHC 31.8 L (32.2-35.5) g/dl RDW Std Deviation 45.8 (36.4-46.3) fL Plt Count 223 (182-369) K/mm3 MPV 10.7 (9.4-12.3) fl Neut % (Auto) 71.6 H (34.0-71.1) % Lymph % (Auto) 19.4 (19.3-51.7) % [place] % (Auto) 7.2 (4.7-12.5) % Eos % (Auto) 1.1 (0.7-5.8) Baso % (Auto) 0.3 (0.1-1.2) % Neut # (Auto) 8.58 H (1.56-6.13) K/mm3 Lymph # (Auto) 2.32 (1.18-3.74) K/mm3 [place] # (Auto) 0.86 H (0.24-0.36) K/mm3 Eos # (Auto) 0.13 (0.04-0.36) K/mm3 Baso # (Auto) 0.04 (0.01-0.08) K/mm3 Med Orders - Current: Current Medications Acetaminophen (Tylenol) 650 mg PO Q4H PRN PRN Reason: mild pain or fever Benzocaine/Menthol (Dermoplast Pain Relief [place]) 0 gm TOP ASDIRECTED PRN PRN Reason: Perineal Comfort Measure Last Admin: 10/11/17 16:10 Dose: 1 can Docusate Sodium (Colace) 100 mg PO BID PRN PRN Reason: Constipation Emollient Ointment (Lansinoh Hpa) 0 gm TOP ASDIRECTED PRN PRN Reason: Sore Nipples Ibuprofen (Motrin) 600 mg PO Q4H PRN PRN Reason: Mild pain or fever Last Admin: 10/13/17 06:59 Dose: 600 mg Witch Helen (Tucks) 1 pad TOP ASDIRECTED PRN PRN Reason: Hemorrhoid pain Last Admin: 10/11/17 16:10 Dose: 1 tub Discontinued Medications Diphenhydramine HCl (Benadryl) 25 mg IVPUSH Q6H PRN PRN Reason: Itching Ephedrine Sulfate (Ephedrine Sulfate) 5 mg IVPUSH ASDIRECTED PRN PRN Reason: HYPOTENTSION Last Admin: 10/11/17 07:19 Dose: 5 mg Fentanyl (Sublimaze) 100 mcg EPIDUR Q3H PRN PRN Reason: PAIN Fentanyl (Sublimaze) Confirm Administered Dose 100 mcg .ROUTE .STK-MED ONE Stop: 10/11/17 05:59 Last Admin: 10/11/17 06:13 Dose: 100 mcg Fentanyl/Bupivacaine HCl (Fentanyl/Bupivacaine/Ns 2 Mcg-0.125% 100 Ml) 100 ml EPIDUR ASDIRECTED CECILE Last Admin: 10/11/17 06:14 Dose: 100 ml Lactated Ringer's (Ringers, Lactated) 1,000 mls @ 125 mls/hr IV ASDIRECTED CECILE Last Admin: 10/11/17 10:39 Dose: 300 mls/hr Oxytocin 20 unit/ Lactated (Ringer's) 1,002 mls @ 6.01 mls/hr IV TITRATE CECILE; 2 MUNITS/MIN PRN Reason: Protocol Last Titration: 10/11/17 13:00 Dose: 250 mls/hr Oxytocin 20 unit/ Lactated (Ringer's) 1,002 mls @ 6.01 mls/hr IV TITRATE CECILE; 2 MUNITS/MIN PRN Reason: Protocol Misoprostol (Cytotec) Confirm Administered Dose 400 mcg .ROUTE .STK-MED ONE Stop: 10/11/17 12:23 Last Admin: 10/11/17 13:30 Dose: Not Given Misoprostol (Cytotec) 400 mcg PO BID ONE Stop: 10/11/17 13:21 Last Admin: 10/11/17 12:25 Dose: 400 mcg Nalbuphine HCl (Nubain) 10 mg IVPUSH Q2H PRN PRN Reason: Pain (moderate 4-6) Sodium Chloride (Saline Flush) 10 ml FLUSH ASDIRECTED PRN PRN Reason: Keep Vein Open *Q Meaningful Use (DIS) - VTE *Q VTE Criteria *Q: - Stroke *Q Stroke Criteria *Q: - AMI *Q AMI Criteria *Q:
== END 2017-10-13 11:00 | disposition home or self-care (01) | DRG 560 ==
LOC: JD.OB 12:18 → OBSVTOIN 10-11 12:18 → JD.OB 10-11 12:18
PROVIDERS: ADMIT Obstetrics & Gynecology; ATTEND Obstetrics & Gynecology
PROC: 10E0XZZ Delivery of Products of Conception, External Approach (ICD-10-PCS; principal; 2017-10-11)
PROC: 10907ZC Drainage of Amniotic Fluid, Therapeutic from Products of Conception, Via Natural or Artificial Opening (ICD-10-PCS; 2017-10-11)
PROC: 00HU33Z Insertion of Infusion Device into Spinal Canal, Percutaneous Approach (ICD-10-PCS; 2017-10-11)
PROC: 3E0R3BZ Introduction of Anesthetic Agent into Spinal Canal, Percutaneous Approach (ICD-10-PCS; 2017-10-11)
DX: O48.0 Post-term pregnancy (principal); Z3A.41 41 weeks gestation of pregnancy; Z37.0 Single live birth; O77.0 Labor and delivery complicated by meconium in amniotic fluid; O70.0 First degree perineal laceration during delivery; O64.0XX0 Obstructed labor due to incomplete rotation of fetal head, not applicable or unspecified
CPT/HCPCS: 36415; 51702; 59409; 85025; 85027; 86850; 86900; 86901; A9270-GY; J2590; J3010; J7120

== ENCOUNTER 2019-07-18 16:16 | Emergency (ER) | payer BC ==
[2019-07-18] MEDS ORDERED: Sodium Chloride 0.9% 10 ML Syringe FLUSH PRN (16:56)
[2019-07-18] MEDS ORDERED: Sodium Chloride 0.9% 1,000 ML IV STA (16:56)
[2019-07-18] MEDS ORDERED: Ondansetron 4 MG/2 ML SDV IVPUSH ONE (16:56)
--- NOTE | 2019-07-18 19:12 | EDM.PDOC ---
ED HPI GENERAL MEDICAL PROBLEM - General Chief Complaint: Gastrointestinal Problem Stated Complaint: 12 WKS PREG AND VOMITING Time Seen by Provider: 07/18/19 16:44 Source of Information: Reports: Patient History Limitations: Reports: No Limitations - History of Present Illness INITIAL COMMENTS - FREE TEXT/NARRATIVE: The patient presents with nausea, vomiting and some abdominal pain. She is AB2 at 12 weeks gestation. She has no bleeding or cramping. She says this started today. She has no fever or chills. She has no cough, chest pain or shortness of breath. She has no dysuria. Onset: Gradual Duration: Hour(s): Location: Reports: Abdomen Quality: Reports: Ache Severity: Mild Improves with: Reports: None Worsens with: Reports: None Associated Symptoms: Reports: Nausea/Vomiting. Denies: Chest Pain, Cough, Fever /Chills, Headaches, Shortness of Breath - Related Data Allergies Allergy/AdvReac Type Severity Reaction Status Date / Time No Known Allergies Allergy Verified 07/18/19 16:48 Home Meds: Home Meds Ondansetron [Zofran ODT] 4 mg PO Q6H PRN #20 tab.dis 07/18/19 [Rx] Past Medical History HEENT History: Reports: Other (See Below) Other HEENT History: wears glasses Gastrointestinal History: Reports: GERD ANIMAL WARDEN History: Reports: , Spontaneous Psychiatric History: Reports: Anxiety Other Psychiatric History: denies depression - Past Surgical History HEENT Surgical History: Reports: Tonsillectomy Social & Family History - Family History Family Medical History: Noncontributory - Tobacco Use Smoking Status *Q: Never Smoker - Caffeine Use Caffeine Use: Reports: None Caffeine Use Comment: one per day - Recreational Drug Use Recreational Drug Use: No ED ROS GENERAL - Review of Systems Review Of Systems: See Below Constitutional: Reports: No Symptoms HEENT: Reports: No Symptoms Respiratory: Reports: No Symptoms Cardiovascular: Reports: No Symptoms Endocrine: Reports: No Symptoms GI/Abdominal: Reports: Abdominal Pain, Nausea, Vomiting. Denies: Diarrhea : Reports: No Symptoms Musculoskeletal: Reports: No Symptoms ED EXAM, GI/ABD - Physical Exam Exam: See Below Exam Limited By: No Limitations General Appearance: Alert, No Apparent Distress Ears: Normal External Exam Nose: Normal Inspection Head: Atraumatic, Normocephalic Neck: Normal Inspection Respiratory/Chest: No Respiratory Distress, Lungs Clear, Normal Breath Sounds Cardiovascular: Regular Rate, Rhythm, No Edema, No Murmur GI/Abdominal Exam: Soft, Non-Tender, No Organomegaly, No Mass Back Exam: Normal Inspection Extremities: Normal Inspection Course - Vital Signs Last Recorded V/S: Last Vital Signs Temp 97.6 F 07/18/19 16:44 Pulse 76 07/18/19 16:44 Resp 16 07/18/19 16:44 BP 124/73 07/18/19 16:44 Pulse Ox 98 07/18/19 16:44 - Orders/Labs/Meds Orders: Active Orders 24 hr Category Date Time Status Peripheral IV Care [RC] . DIRECTED Care 07/18/19 16:57 Active Sodium Chloride 0.9% [Saline Flush] Med 07/18/19 16:56 Active 10 ml FLUSH ASDIRECTED PRN ED Antiemetic Medication Reflex [OM.PC] Stat Oth 07/18/19 16:57 Ordered Peripheral IV Insertion Adult [OM.PC] Stat Oth 07/18/19 16:56 Ordered Medication Orders Sodium Chloride (Saline Flush) 10 ml FLUSH ASDIRECTED PRN PRN Reason: Keep Vein Open Last Admin: 07/18/19 17:16 Dose: 10 ml Labs: Laboratory Tests 07/18/19 07/18/19 07/18/19 Range/Units 17:15 17:15 17:15 WBC 13.22 H (3.98-10.04) K/mm3 RBC 4.94 (3.98-5.22) M/mm3 Hgb 13.8 (11.2-15.7) gm/L Hct 40.6 (34.1-44.9) % MCV 82.2 (79.4-94.8) fl MCH 27.9 (25.6-32.2) pg MCHC 34.0 (32.2-35.5) g/dl RDW Std Deviation 40.1 (36.4-46.3) fL Plt Count 269 (182-369) K/mm3 MPV 10.3 (9.4-12.3) fl Neut % (Auto) 87.0 H (34.0-71.1) % Lymph % (Auto) 8.6 L (19.3-51.7) % Pettis % (Auto) 3.7 L (4.7-12.5) % Eos % (Auto) 0.3 L (0.7-5.8) Baso % (Auto) 0.2 (0.1-1.2) % Neut # (Auto) 11.50 H (1.56-6.13) K/mm3 Lymph # (Auto) 1.14 L (1.18-3.74) K/mm3 Pettis # (Auto) 0.49 H (0.24-0.36) K/mm3 Eos # (Auto) 0.04 (0.04-0.36) K/mm3 Baso # (Auto) 0.02 (0.01-0.08) K/mm3 Manual Slide Review Abnormal smear Sodium 141 (136-145) mEq/L Potassium 3.8 (3.5-5.1) mEq/L Chloride 104 (98-107) mEq/L Carbon Dioxide 25 (21-32) mEq/L Anion Gap 15.8 H (5-15) BUN 10 (7-18) mg/dL Creatinine 0.7 (0.55-1.02) mg/dL Est Cr Clr Drug Dosing 103.40 mL/min Estimated GFR (MDRD) > 60 (>60) mL/min BUN/Creatinine Ratio 14.3 (14-18) Glucose 83 (74-106) mg/dL Calcium 8.8 (8.5-10.1) mg/dL Total Bilirubin 0.4 (0.2-1.0) mg/dL AST 11 L (15-37) U/L ALT 25 (14-59) U/L Alkaline Phosphatase 139 H (46-116) U/L Total Protein 7.0 (6.4-8.2) g/dl Albumin 3.3 L (3.4-5.0) g/dl Globulin 3.7 gm/dL Albumin/Globulin Ratio 0.9 L (1-2) Lipase 92 (73-393) U/L HCG, Quant 24545.0 mIU/mL Urine Color (Yellow) Urine Appearance (Clear) Urine pH (5.0-8.0) Ur Specific Kinder (1.005-1.030) Urine Protein (Negative) Urine Glucose (UA) (Negative) Urine Ketones (Negative) Urine Occult Blood (Negative) Urine Nitrite (Negative) Urine Bilirubin (Negative) Urine Urobilinogen (0.2-1.0) Ur Leukocyte Esterase (Negative) Urine RBC (0-5) /hpf Urine WBC (0-5) /hpf Ur Squamous Epith Cells (0-5) /hpf Urine Bacteria (FEW) /hpf Urine Mucus (FEW) /hpf 07/18/19 Range/Units 17:43 WBC (3.98-10.04) K/mm3 RBC (3.98-5.22) M/mm3 Hgb (11.2-15.7) gm/L Hct (34.1-44.9) % MCV (79.4-94.8) fl MCH (25.6-32.2) pg MCHC (32.2-35.5) g/dl RDW Std Deviation (36.4-46.3) fL Plt Count (182-369) K/mm3 MPV (9.4-12.3) fl Neut % (Auto) (34.0-71.1) % Lymph % (Auto) (19.3-51.7) % Pettis % (Auto) (4.7-12.5) % Eos % (Auto) (0.7-5.8) Baso % (Auto) (0.1-1.2) % Neut # (Auto) (1.56-6.13) K/mm3 Lymph # (Auto) (1.18-3.74) K/mm3 Pettis # (Auto) (0.24-0.36) K/mm3 Eos # (Auto) (0.04-0.36) K/mm3 Baso # (Auto) (0.01-0.08) K/mm3 Manual Slide Review Sodium (136-145) mEq/L Potassium (3.5-5.1) mEq/L Chloride (98-107) mEq/L Carbon Dioxide (21-32) mEq/L Anion Gap (5-15) BUN (7-18) mg/dL Creatinine (0.55-1.02) mg/dL Est Cr Clr Drug Dosing mL/min Estimated GFR (MDRD) (>60) mL/min BUN/Creatinine Ratio (14-18) Glucose (74-106) mg/dL Calcium (8.5-10.1) mg/dL Total Bilirubin (0.2-1.0) mg/dL AST (15-37) U/L ALT (14-59) U/L Alkaline Phosphatase (46-116) U/L Total Protein (6.4-8.2) g/dl Albumin (3.4-5.0) g/dl Globulin gm/dL Albumin/Globulin Ratio (1-2) Lipase (73-393) U/L HCG, Quant mIU/mL Urine Color Yellow (Yellow) Urine Appearance Clear (Clear) Urine pH 5.5 (5.0-8.0) Ur Specific Kinder > or = 1.030 (1.005-1.030) Urine Protein 1+ H (Negative) Urine Glucose (UA) Negative (Negative) Urine Ketones 3+ H (Negative) Urine Occult Blood Negative (Negative) Urine Nitrite Negative (Negative) Urine Bilirubin Negative (Negative) Urine Urobilinogen 0.2 (0.2-1.0) Ur Leukocyte Esterase Negative (Negative) Urine RBC Not seen (0-5) /hpf Urine WBC 0-5 (0-5) /hpf Ur Squamous Epith Cells 5-10 H (0-5) /hpf Urine Bacteria Few (FEW) /hpf Urine Mucus Many H (FEW) /hpf Meds: Medications Generic Name Dose Route Start Last Admin Trade Name Freq PRN Reason Stop Dose Admin Sodium Chloride 10 ml 07/18/19 16:56 07/18/19 17:16 Saline Flush FLUSH 10 ml ASDIRECTED PRN Administration Keep Vein Open Discontinued Medications Generic Name Dose Route Start Last Admin Trade Name Freq PRN Reason Stop Dose Admin Sodium Chloride 1,000 mls @ 1,000 mls/hr 07/18/19 16:56 07/18/19 17:16 Normal Saline IV 07/18/19 17:55 1,000 mls/hr .BOLUS STA Administration Ondansetron HCl 4 mg 07/18/19 16:56 07/18/19 17:16 Zofran IVPUSH 07/18/19 16:57 4 mg ONETIME ONE Administration - Re-Assessments/Exams Free Text/Narrative Re-Assessment/Exam: 07/18/19 19:09 I ordered an IV NS 1l bolus, zofran 4mg IV, labs and UA. Her WBC is elevated is 13.22. Her anion gap was elevated at 15.8. Her alk phos was elevated at 139. Her lipase was normal. Her HCG was elevated at 75, 942. Her UA shows no UTI. She feels better but she has some hunger pains. I will get her on some zofran. Departure - Departure Time of Disposition: 19:15 Disposition: Home, Self-Care 01 Condition: Good Clinical Impression: Vomiting - Discharge Information *PRESCRIPTION DRUG MONITORING PROGRAM REVIEWED*: No *COPY OF PRESCRIPTION DRUG MONITORING REPORT IN PATIENT SARINA: No Prescriptions: Ondansetron [Zofran ODT] 4 mg PO Q6H PRN #20 tab.dis PRN Reason: Nausea\vomiting Referrals: Jay Jay Grier MD [Primary Care Provider] - 1 Week Additional Instructions: Drink plenty of fluids. Take zofran every 6 hours as needed for nausea and vomiting. Please return if you are worse and follow up with Dr Grier within a week. - My Orders Last 24 Hours: My Active Orders 07/18/19 16:56 Sodium Chloride 0.9% [Saline Flush] 10 ml FLUSH ASDIRECTED PRN Peripheral IV Insertion Adult [OM.PC] Stat 07/18/19 16:57 Peripheral IV Care [RC] . DIRECTED ED Antiemetic Medication Reflex [OM.PC] Stat - Assessment/Plan Last 24 Hours: My Active Orders 07/18/19 16:56 Sodium Chloride 0.9% [Saline Flush] 10 ml FLUSH ASDIRECTED PRN Peripheral IV Insertion Adult [OM.PC] Stat 07/18/19 16:57 Peripheral IV Care [RC] . DIRECTED ED Antiemetic Medication Reflex [OM.PC] Stat
== END 2019-07-18 19:23 | disposition home or self-care (01) ==
LOC: JD.ED 16:16
DX: O21.9 Vomiting of pregnancy, unspecified (principal); Z3A.12 12 weeks gestation of pregnancy
CPT/HCPCS: 36415; 80053; 81001; 83690; 84702; 85025; 96361; 96374; 99284; J2405; J7040; 99283

== ENCOUNTER 2019-12-31 13:23 | Inpatient (IN) | payer BC ==
[2019-12-31] MEDS ORDERED: Sodium Chloride 0.9% 10 ML Syringe FLUSH PRN (21:08)
[2019-12-31] MEDS ORDERED: Ondansetron 4 MG Tab.DIS PO PRN (21:08)
[2019-12-31] MEDS ORDERED: Nalbuphine 10 MG/ML Syringe IVPUSH PRN (21:08)
[2019-12-31] MEDS ORDERED: Oxytocin/Lactated Ringers 10 UNIT/1,000 ML BAG IV SCH ×2 (21:15)
--- NOTE | 2019-12-31 21:36 | PCM.LDHP ---
L&D History of Present Illness - General Date of Service: 12/31/19 Admit Problem/Dx: Patient Status Order with Admit Dx/Problem 12/31/19 21:08 Patient Status [ADT] Routine Admission Diagnosis/Problem Admission Diagnosis/Problem 12/31/19 21:19 Karl is a 24-year-old 4 para 10-1 white female who is admitted to labor and delivery on the evening of 12/31/2019 at 35-6/7 weeks gestational age with an MALISSA of for medical induction of labor for the diagnosis of progressive intrahepatic cholestasis of . Source of Information: Patient History Limitations: Reports: No Limitations - History of Present Illness Introduction:: Karl is a 24-year-old 4 para 10-1 white female who is admitted to labor and delivery on the evening of 12/31/2019 at 35-6/7 weeks gestational age with an MALISSA of for medical induction of labor for the diagnosis of progressive intrahepatic cholestasis of .Patient followed for the last week at which time she began having severe pruritis. This involved her entire body especially her hands and feet. She was seen on 12/27/2018 at which time she was noted to have no significant rash, significant itching was apparent and laboratory testing showed normal CBC with the exception of mildly decreased hemoglobin, a CMP which was significant for an AST elevation at 130 an ALT elevation to 60. She was prescribed ursodiol 300 mg by mouth twice a day and hydroxyzine 50 mg every 6 hours when necessary. The itching improved significantly although she was not able to get the ursodiol filled because the pharmacy did not have any in stock. A biophysical profile was performed and showed a score of 8/8. Patient was given betamethasone IM12 mg on 12/27/2019 and again 24 hours later. She reported excellent activity and no signs/ symptoms of preeclampsia. Bile acid studies were ordered and are pending at this time. She was again seen on 12/30/2019 at which time itching had nearly resolved, her vital signs were stable, laboratory testing showed a hemoglobin which was 11.1, hematocrit 34.9, platelets 285,000 and white count 11.52. Her AST had increased to 495 and her ALT had increased to 202. BPP at that time showed a score of 8/ 8. Amniotic fluid volume was 11.1 cm and heart rate was 134. Baby is in a vertex presentation. Consultation with maternal- medicine resulted in recommendation for delivery after 36 weeks. She is admitted at this time for induction of labor. The procedure of induction of labor is understood by the patient as she was induced with her first . Plan is to proceed with Pitocin induction/artificial rupture membranes augmentation. Pediatrics has been made aware of the patient's admission. 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 Her is dated by a certain last menstrual period which started on 04/24/2019 resulting in an MALISSA of 01/29/2020. Patient had 3 ultrasounds during the course of on 06/17/2019, 2018 and again on 09/13/2019 all supporting her LMP dating. Patient had menarche at age 13. Cycles every 30 days. She was not on control at the time of conception. Her past pregnancies included a miscarriage on 03/11/2015 and again on 12/22/2016 in first trimester. She had a term resulting in delivery of a female infant on 10/11/2017 after 16 hours of labor at 40 and 67 weeks gestational age. This was a normal spontaneous vaginal delivery. She had an epidural for labor analgesia. Child's name is Misty. course: Patient was first seen for this 11-1/7 weeks gestational age. She had a previous ultrasound at 7-3/7 weeks which supported her MALISSA. She was seen regularly during the course of . She had a weight gain from 202 pounds up to 220.8 pounds for approximately an 19 pound gain. Her vital signs been stable throughout the course. Her fundal height growth has been appropriate. Patient is group B strep negative. She has had mild anemia in . She also suffers from some anxiety. She declined genetic testing. She also suffers from some depression. Her EPDS score on 2018 was 8/30. Patient plans to breast-feed. Patient had Provera cell vaccinations in 2012. Her hepatitis immunizations in 1995 her pneumococcal immunizations in 1999 and her meningococcal immunizations September 2013. Laboratory testing in shows blood to be AB+. Antibody screen is negative. First hemoglobin is 13.3 g/dL and platelets were 310,000. Patient is rubella immune. RPR is nonreactive. Hepatitis B surface antigen and HIV assays were both negative. GC and chlamydia tests were both negative. Second trimester labs showed hemoglobin of 11.5 g/dL and platelets of 295,000. Her 1 hour local's test was normal at 81. Patient had a hemoglobin again on 12/27 which was 11.8 g/dL. Platelets at that time were 247,000. She is group B strep negative. Allergies: None Medications: 1. Hydroxyzine 50 mg by mouth every 4 hours when necessary for itching 2. Patient was prescribed ursodiol 300 mg 2-3 times per day but did not fill these as patient reported pharmacy did not have them in stock 3. vitamins daily 4. Ferrous sulfate 325 mg by mouth daily Past medical history: 1. Normal spontaneous vaginal delivery 10/11/2017 at term 2. Miscarriages 2 in 2014 and 2016. Family history: Mother with seasonal allergies, alive and well otherwise. Father is alive on a lot of medications secondary to cirrhosis. He is age 62 and suffers from alcoholism. Paternal grandmother is alive and well as is her maternal grandfather. Paternal grandfather is secondary to lung disease related to smoking. Paternal grandmother is alive at approximately age 85 with dementia. No family history of cancer, bleeding or clotting disorders, anesthesia-related issues are -related problems. Social history: Patient is . 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 is [place]. She and her family live in [place], [place]. She does not use any significant muscle L call, drugs or tobacco. Review of systems: In general patient had only one complaint in that was severe itching which has improved significantly with hydroxyzine therapy. Baby has been active. No significant contractions are noted. Skin: Negative Lungs: No infectious symptoms or shortness of breath Cardiovascular: No chest pain or exercise intolerance Breasts: Changes associated with . GI: Negative : changes Musculoskeletal: Negative Neurological: Negative In general the patient is well-developed, well-nourished, pleasant female of stated age in no acute distress. Itching has significantly improved. Last evaluation clinic on 12/30/2019 blood pressure is 110/64, weight was 220.8 pounds, heart rate was 136, patient's pregravid weight was 202 pounds. Height is 5 feet 3 inches. Prepregnancy body mass index is 35.4. Skin is warm dry without lesions. HEENT, neck and back within normal limits. Lungs are clear with good breath sounds in all lung camara. Cardiovascular exam shows regular and rhythm without murmurs. Breast exam is deferred as it was done at first visit and found to be normal. Patient plans to breast-feed. Abdomen is gravid with last fundal height in clinic at 37.5 cm.. Genital per digital exam shows 2 cm dilation, 70% effacement, -3 station, mid position, soft. The reason the vertex presentation. Extremities and neurological exam are grossly within normal limits. 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: Reports: , Spontaneous Psychiatric History: Reports: Anxiety, Depression Other Psychiatric History: HX of checked, denies concerns at this time Hematologic History: Reports: Anemia Dermatologic History: Reports: Other (See Below) Other Dermatologic History: itching - Past Surgical History HEENT Surgical History: Reports: Adenoidectomy, Tonsillectomy Social & Family History - Family History Family Medical History: Noncontributory - Tobacco Use Smoking Status *Q: Never Smoker Second Hand Smoke Exposure: No - Caffeine Use Caffeine Use: Reports: None Caffeine Use Comment: one per day - Recreational Drug Use Recreational Drug Use: No H&P Review of Systems - Review of Systems: Review Of Systems: See Below L&D Exam - Exam Exam: See Below - Vital Signs Vital Signs: Last Vital Signs Temp 36.6 C 12/31/19 20:21 Pulse 114 H 12/31/19 20:21 Resp 16 12/31/19 20:21 BP 125/68 12/31/19 20:21 Pulse Ox 99 12/31/19 20:21 Weight: 99.932 kg Problem List Initiated/Reviewed/Updated: Yes Orders Last 24hrs: Active Orders 24 hr Category Date Time Status Patient Status [ADT] Routine ADT 12/31/19 21:08 Active Activity as Tolerated [RC] PFP Care 12/31/19 21:08 Active Communication Order [RC] ASDIRECTED Care 12/31/19 21:08 Active Heart Tones [RC] ASDIRECTED Care 12/31/19 21:09 Active Non Stress Test [RC] PER UNIT ROUTINE Care 12/31/19 21:08 Active Notify Provider [RC] PFP Care 12/31/19 21:08 Active Notify Provider [RC] PRN Care 12/31/19 21:08 Active Peripheral IV Care [RC] . DIRECTED Care 12/31/19 21:09 Active Vital Signs [RC] PER UNIT ROUTINE Care 12/31/19 21:08 Active CBC WITH AUTO DIFF [HEME] Stat Lab 12/31/19 21:08 Ordered COMPREHENSIVE METABOLIC PN,CMP [CHEM] Stat Lab 12/31/19 21:08 Ordered RAPID PLASMA REAGIN,RPR [CHEM] Routine Lab 12/31/19 21:08 Ordered Lactated Ringers [Ringers, Lactated] 1,000 ml Med 12/31/19 21:15 Ordered IV ASDIRECTED Nalbuphine [Nubain] Med 12/31/19 21:08 Ordered 10 mg IVPUSH Q2H PRN Ondansetron [Zofran ODT] Med 12/31/19 21:08 Ordered 4 mg PO Q4H PRN Oxytocin/Lactated Ringers [Pitocin in LR 10 Units/1,000 Med 12/31/19 21:15 Ordered ML] 10 unit in 1,000 ml IV .CONTINUOUS Oxytocin/Lactated Ringers [Pitocin in LR 10 Units/1,000 Med 12/31/19 21:15 Ordered ML] 10 unit in 1,000 ml IV TITRATE Sodium Chloride 0.9% [Saline Flush] Med 12/31/19 21:08 Ordered 10 ml FLUSH ASDIRECTED PRN Electronic Heart Tones Ext w TOCO [WOMSER] Oth 12/31/19 21:08 Ordered Routine Electronic Heart Tones Internal [WOMSER] Per Unit Oth 12/31/19 21:08 Ordered Routine Peripheral IV Insertion Adult [OM.PC] Routine Oth 12/31/19 21:08 Ordered Resuscitation Status Routine Resus Stat 02/04/20 21:08 Ordered Medication Orders Lactated Ringer's (Ringers, Lactated) 1,000 mls @ 100 mls/hr IV ASDIRECTED CECILE Oxytocin/Lactated Ringer's (Pitocin In Lr 10 Units/1,000 Ml) 10 unit in 1,000 mls @ 12 mls/hr IV TITRATE CECILE; Protocol Oxytocin/Lactated Ringer's (Pitocin In Lr 10 Units/1,000 Ml) 10 unit in 1,000 mls @ 500 mls/hr IV .CONTINUOUS CECILE Nalbuphine HCl (Nubain) 10 mg IVPUSH Q2H PRN PRN Reason: Pain Ondansetron HCl (Zofran Odt) 4 mg PO Q4H PRN PRN Reason: Nausea/Vomiting Sodium Chloride (Saline Flush) 10 ml FLUSH ASDIRECTED PRN PRN Reason: Keep Vein Open Assessment/Plan Comment:: 1. Intrahepatic cholestasis of in a 36 week . Progressive worsening of liver function studies. Symptoms improved with hydroxyzine therapy. 2. well-being confirmed with serial BPP's in clinic and heart tone monitoring at present time. 3. Group B strep negative 4.. Patient plans to breast-feed 5. Patient is okay with epidural but would like to start with natural labor 6. History of miscarriages 2 7. She has suffered from some anxiety and depression during the course of the but is not on any medication. 8. Patient is received betamethasone 2 doses on 12/27/2019 and 12/28/2021 enhance likelihood of lung maturation. Plan: 1. Pitocin/artificial rupture membranes induction/augmentation of labor to affect delivery. 2. Laboratory testing consistent CBC, CMP, RPR upon admission 3. Epidural when necessary for patient as desired 4. Continuous electronic heart monitoring 5. Support breast-feeding decision. 6. Routine labor care 7. Anticipate normal spontaneous vaginal delivery 8. Pediatrics has been informed of patient's induction and diagnosis
[2019-12-31] MEDS: Lactated Ringers 1,000 ML IV SCH (21:45)
[2019-12-31] MEDS: hydrOXYzine HCl 50 MG Tab PO PRN (21:52)
[2020-01-01] MEDS ORDERED: Bupivacaine 0.25% 10 ML SDV ONE
[2020-01-01] MEDS ORDERED: Oxytocin/Lactated Ringers 20 UNIT/1,000 ML BAG IV SCH (04:30)
[2020-01-01] MEDS ORDERED: Ondansetron 4 MG/2 ML SDV IVPUSH PRN (07:13)
[2020-01-01] MEDS ORDERED: ePHEDrine 50 MG/ML SDV IVPUSH PRN (07:13)
[2020-01-01] MEDS ORDERED: fentaNYL 100 MCG/2 ML SDV EPIDUR PRN (07:13)
[2020-01-01] MEDS ORDERED: Bupivacaine/fentaNYL/NS 100 ML Bag EPIDUR SCH (07:15)
[2020-01-01] MEDS ORDERED: Phenylephrine 1 MG in Sodium Chloride 0.9% 10 ML IV SCH (07:15)
--- NOTE | 2020-01-01 07:16 | PCM.PREANE ---
Preanesthetic Assessment - Anesthesia/Transfusion/Family Hx Anesthesia History: Prior Anesthesia Without Reaction Family History of Anesthesia Reaction: No Transfusion History: No Prior Transfusion(s) Intubation History: Unknown - Review of Systems General: No Symptoms Pulmonary: No Symptoms Cardiovascular: No Symptoms Gastrointestinal: No Symptoms (GERD) Neurological: No Symptoms Other: Reports: Easy Bruising, Liver Problems (Progressive intrahepatic cholestasis of , elevated liver enzymes/pruitis) - Physical Assessment NPO Status Date: 01/01/20 NPO Status Time: 07:50 Vital Signs: Last Vital Signs Temp 36.6 C 12/31/19 20:21 Pulse 114 H 12/31/19 20:21 Resp 16 12/31/19 20:21 BP 125/68 12/31/19 20:21 Pulse Ox 99 12/31/19 20:21 Height: 1.57 m Weight: 99.932 kg ASA Class: 2 Mental Status: Alert & Oriented x3 Airway Class: Mallampati = 2 Dentition: Reports: Normal Dentition, Caries Thyro-Mental Finger Breadths: 3 Mouth Opening Finger Breadths: 3 ROM/Head Extension: Full Lungs: Clear to Auscultation, Normal Respiratory Effort Cardiovascular: Regular Rate, Regular Rhythm, No Murmurs - Lab Values: Laboratory Last Values WBC 11.23 K/mm3 (3.98-10.04) H 12/31/19 21:30 RBC 4.08 M/mm3 (3.98-5.22) 12/31/19 21:30 Hgb 11.2 gm/dl (11.2-15.7) 12/31/19 21:30 Hct 34.6 % (34.1-44.9) 12/31/19 21:30 MCV 84.8 fl (79.4-94.8) 12/31/19 21:30 MCH 27.5 pg (25.6-32.2) 12/31/19 21:30 MCHC 32.4 g/dl (32.2-35.5) 12/31/19 21:30 RDW Std Deviation 40.3 fL (36.4-46.3) 12/31/19 21:30 Plt Count 292 K/mm3 (182-369) 12/31/19 21:30 MPV 10.9 fl (9.4-12.3) 12/31/19 21:30 Neut % (Auto) 71.6 % (34.0-71.1) H 12/31/19 21:30 Lymph % (Auto) 21.1 % (19.3-51.7) 12/31/19 21:30 [place] % (Auto) 6.2 % (4.7-12.5) 12/31/19 21:30 Eos % (Auto) 0.6 (0.7-5.8) L 12/31/19 21:30 Baso % (Auto) 0.1 % (0.1-1.2) 12/31/19 21:30 Neut # (Auto) 8.04 K/mm3 (1.56-6.13) H 12/31/19 21:30 Lymph # (Auto) 2.37 K/mm3 (1.18-3.74) 12/31/19 21:30 [place] # (Auto) 0.70 K/mm3 (0.24-0.36) H 12/31/19 21:30 Eos # (Auto) 0.07 K/mm3 (0.04-0.36) 12/31/19 21:30 Baso # (Auto) 0.01 K/mm3 (0.01-0.08) 12/31/19 21:30 Sodium 138 mEq/L (136-145) 12/31/19 21:30 Potassium 3.9 mEq/L (3.5-5.1) 12/31/19 21:30 Chloride 103 mEq/L (98-107) 12/31/19 21:30 Carbon Dioxide 23 mEq/L (21-32) 12/31/19 21:30 Anion Gap 15.9 (5-15) H 12/31/19 21:30 BUN 9 mg/dL (7-18) 12/31/19 21:30 Creatinine 0.9 mg/dL (0.55-1.02) 12/31/19 21:30 Est Cr Clr Drug Dosing 76.23 mL/min 12/31/19 21:30 Estimated GFR (MDRD) > 60 mL/min (>60) 12/31/19 21:30 BUN/Creatinine Ratio 10.0 (14-18) L 12/31/19 21:30 Glucose 100 mg/dL (74-106) 12/31/19 21:30 Calcium 8.7 mg/dL (8.5-10.1) 12/31/19 21:30 Total Bilirubin 0.6 mg/dL (0.2-1.0) 12/31/19 21:30 AST 208 U/L (15-37) H 12/31/19 21:30 ALT 522 U/L (14-59) H 12/31/19 21:30 Alkaline Phosphatase 241 U/L (46-116) H 12/31/19 21:30 Total Protein 6.3 g/dl (6.4-8.2) L 12/31/19 21:30 Albumin 2.3 g/dl (3.4-5.0) L 12/31/19 21:30 Globulin 4.0 gm/dL 12/31/19 21:30 Albumin/Globulin Ratio 0.6 (1-2) L 12/31/19 21:30 Above labs reviewed and noted and within acceptable ranges to proceed with epidural if desired. - Allergies Allergies/Adverse Reactions: Allergies Allergy/AdvReac Type Severity Reaction Status Date / Time No Known Allergies Allergy Verified 12/28/19 15:27 - Anesthesia Plan Pre-Op Medication Ordered: None - Acknowledgements Anesthesia Type Planned: Epidural Pt an Appropriate Candidate for the Planned Anesthesia: Yes Alternatives and Risks of Anesthesia Discussed w Pt/Guardian: Yes Pt/Guardian Understands and Agrees with Anesthesia Plan: Yes PreAnesthesia Questionnaire HEENT History: Reports: Other (See Below) Other HEENT History: wears glasses Gastrointestinal History: Reports: Cholelithiasis, GERD 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: , 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 Psychiatric History: Reports: Anxiety, Depression Other Psychiatric History: HX of checked, denies concerns at this time Hematologic History: Reports: Anemia Dermatologic History: Reports: Other (See Below) Other Dermatologic History: itching - Past Surgical History HEENT Surgical History: Reports: Adenoidectomy, Tonsillectomy - SUBSTANCE USE Smoking Status *Q: Never Smoker Tobacco Use Within Last Twelve Months: No Second Hand Smoke Exposure: No Recreational Drug Use History: No - HOME MEDS Home Medications: Home Meds Ferrous Sulfate [Iron] 325 mg PO DAILY 12/31/19 [History] Pnv No.95/Ferrous Fum/Folic AC [ Caplet] 1 tab PO DAILY 12/31/19 [ History] hydrOXYzine HCL [Atarax] 50 mg PO TID PRN 12/31/19 [History] - CURRENT (IN HOUSE) MEDS Current Meds: Current Medications Hydroxyzine HCl (Atarax) 50 mg PO TID PRN PRN Reason: Itching Last Admin: 12/31/19 21:52 Dose: 50 mg Lactated Ringer's (Ringers, Lactated) 1,000 mls @ 100 mls/hr IV ASDIRECTED CECILE Last Admin: 12/31/19 21:45 Dose: 100 mls/hr Oxytocin/Lactated Ringer's (Pitocin In Lr 10 Units/1,000 Ml) 10 unit in 1,000 mls @ 12 mls/hr IV TITRATE CECILE; Protocol Last Titration: 01/01/20 04:25 Dose: 20 munits/min, 120 mls/hr Oxytocin/Lactated Ringer's (Pitocin In Lr 10 Units/1,000 Ml) 10 unit in 1,000 mls @ 500 mls/hr IV .CONTINUOUS CECILE Oxytocin/Lactated Ringer's (Pitocin In Lr 20 Units/1,000 Ml) 20 unit in 1,000 mls @ 60 mls/hr IV TITRATE CECILE; Protocol Last Admin: 01/01/20 05:14 Dose: 60 mls/hr Nalbuphine HCl (Nubain) 10 mg IVPUSH Q2H PRN PRN Reason: Pain Ondansetron HCl (Zofran Odt) 4 mg PO Q4H PRN PRN Reason: Nausea/Vomiting Sodium Chloride (Saline Flush) 10 ml FLUSH ASDIRECTED PRN PRN Reason: Keep Vein Open
[2020-01-01] MEDS: Lactated Ringers 1,000 ML IV SCH (08:00)
[2020-01-01] MEDS: hydrOXYzine HCl 50 MG Tab PO PRN ×2 (09:39→19:59)
--- NOTE | 2020-01-01 10:46 | PCM.SN ---
- Free Text/Narrative Note: Cervix on exam at 1040 5 cm, 90%, soft, mid-position, vertex -1/0 station. Good relief from epiduram. Cat I FHR.
--- NOTE | 2020-01-01 13:45 | PCM.DEL ---
L & D Note - General Info Date of Service: 01/01/20 Mother's Due Date: 01/29/20 - Delivery Note Labor: Augmented by ARM, Augmented by Oxytocin Delivery Outcome: Livebirth (female liveborn weight pending, APGARs 9/9, VIOLETA at 1323 01/01/2020) Delivery Method: Spontaneous Vaginal Delivery-Single Infant Delivery Mode: Spontaneous Presentation: Left Occiput Anterior (VIOLETA) Nuchal Cord: None Prep: Povidone-Iodine (Betadine Anesthesia Type: Combined Spinal Epidural Amniotic Fluid Description: Meconium Stained (light thin meconium) Episiotomy Type: None Laceration: None Placenta: Intact, Spontaneous (1326 Mon01/01/2020 eccentric cord insertion, examined and in tact discarded) - General Info Date of Service: 01/01/20 Functional Status: Reports: Pain Controlled - Review of Systems General: Reports: No Symptoms HEENT: Reports: No Symptoms Pulmonary: Reports: No Symptoms Cardiovascular: Reports: No Symptoms Gastrointestinal: Reports: No Symptoms Genitourinary: Reports: No Symptoms Musculoskeletal: Reports: No Symptoms Skin: Reports: No Symptoms Neurological: Reports: No Symptoms Psychiatric: Reports: No Symptoms - Patient Data Vitals - Most Recent: Last Vital Signs Temp 97.9 F 12/31/19 20:21 Pulse 114 H 12/31/19 20:21 Resp 16 12/31/19 20:21 BP 125/68 12/31/19 20:21 Pulse Ox 99 12/31/19 20:21 Weight - Most Recent: 220 lb 5 oz I&O - Last 24 Hours: Intake & Output 12/31/19 01/01/20 01/01/20 22:59 06:59 14:59 Intake Total 1120 Balance 1120 Lab Results Last 24 Hours: Laboratory Results - last 24 hr 12/31/19 12/31/19 Range/Units 21:30 21:30 WBC 11.23 H (3.98-10.04) K/mm3 RBC 4.08 (3.98-5.22) M/mm3 Hgb 11.2 (11.2-15.7) gm/dl Hct 34.6 (34.1-44.9) % MCV 84.8 (79.4-94.8) fl MCH 27.5 (25.6-32.2) pg MCHC 32.4 (32.2-35.5) g/dl RDW Std Deviation 40.3 (36.4-46.3) fL Plt Count 292 (182-369) K/mm3 MPV 10.9 (9.4-12.3) fl Neut % (Auto) 71.6 H (34.0-71.1) % Lymph % (Auto) 21.1 (19.3-51.7) % [place] % (Auto) 6.2 (4.7-12.5) % Eos % (Auto) 0.6 L (0.7-5.8) Baso % (Auto) 0.1 (0.1-1.2) % Neut # (Auto) 8.04 H (1.56-6.13) K/mm3 Lymph # (Auto) 2.37 (1.18-3.74) K/mm3 [place] # (Auto) 0.70 H (0.24-0.36) K/mm3 Eos # (Auto) 0.07 (0.04-0.36) K/mm3 Baso # (Auto) 0.01 (0.01-0.08) K/mm3 Sodium 138 (136-145) mEq/L Potassium 3.9 (3.5-5.1) mEq/L Chloride 103 (98-107) mEq/L Carbon Dioxide 23 (21-32) mEq/L Anion Gap 15.9 H (5-15) BUN 9 (7-18) mg/dL Creatinine 0.9 (0.55-1.02) mg/dL Est Cr Clr Drug Dosing 76.23 mL/min Estimated GFR (MDRD) > 60 (>60) mL/min BUN/Creatinine Ratio 10.0 L (14-18) Glucose 100 (74-106) mg/dL Calcium 8.7 (8.5-10.1) mg/dL Total Bilirubin 0.6 (0.2-1.0) mg/dL AST 208 H (15-37) U/L ALT 522 H (14-59) U/L Alkaline Phosphatase 241 H (46-116) U/L Total Protein 6.3 L (6.4-8.2) g/dl Albumin 2.3 L (3.4-5.0) g/dl Globulin 4.0 gm/dL Albumin/Globulin Ratio 0.6 L (1-2) Med Orders - Current: Current Medications Ephedrine Sulfate (Ephedrine Sulfate) 5 mg IVPUSH ASDIRECTED PRN PRN Reason: Hypotension Fentanyl (Sublimaze) 100 mcg EPIDUR Q3H PRN PRN Reason: Pain Last Admin: 01/01/20 07:56 Dose: 100 mcg Fentanyl/Bupivacaine HCl (Fentanyl/Bupivacaine/Ns 2 Mcg-0.125% 100 Ml) 100 ml EPIDUR ASDIRECTED CECILE Last Admin: 01/01/20 07:55 Dose: 100 ml Hydroxyzine HCl (Atarax) 50 mg PO TID PRN PRN Reason: Itching Last Admin: 01/01/20 09:39 Dose: 50 mg Lactated Ringer's (Ringers, Lactated) 1,000 mls @ 100 mls/hr IV ASDIRECTED CECILE Last Admin: 01/01/20 08:00 Dose: 100 mls/hr Oxytocin/Lactated Ringer's (Pitocin In Lr 10 Units/1,000 Ml) 10 unit in 1,000 mls @ 12 mls/hr IV TITRATE CECILE; Protocol Last Titration: 01/01/20 04:25 Dose: 20 munits/min, 120 mls/hr Oxytocin/Lactated Ringer's (Pitocin In Lr 10 Units/1,000 Ml) 10 unit in 1,000 mls @ 500 mls/hr IV .CONTINUOUS CECILE Oxytocin/Lactated Ringer's (Pitocin In Lr 20 Units/1,000 Ml) 20 unit in 1,000 mls @ 60 mls/hr IV TITRATE CECILE; Protocol Last Admin: 01/01/20 05:14 Dose: 60 mls/hr Phenylephrine HCl 1 mg/ Sodium (Chloride) 10.1 mls @ 1 mls/sec IV TITRATE CECILE; Protocol Nalbuphine HCl (Nubain) 10 mg IVPUSH Q2H PRN PRN Reason: Pain Ondansetron HCl (Zofran Odt) 4 mg PO Q4H PRN PRN Reason: Nausea/Vomiting Ondansetron HCl (Zofran) 4 mg IVPUSH ONETIME PRN PRN Reason: Nausea/Vomiting Sodium Chloride (Saline Flush) 10 ml FLUSH ASDIRECTED PRN PRN Reason: Keep Vein Open - Exam General: Alert, Oriented Extremities: Normal Inspection, Non-Tender, No Pedal Edema, Normal Capillary Refill Skin: Warm, Dry, Intact Psy/Mental Status: Alert, Normal Affect, Normal Mood - Problem List & Annotations (1) 36 weeks gestation of SNOMED Code(s): 96898746 Code(s): Z3A.36 - 36 WEEKS GESTATION OF Status: Acute Current Visit: Yes (2) Labor and delivery complicated by meconium in amniotic fluid SNOMED Code(s): 083978769 Code(s): O77.0 - LABOR AND DELIVERY COMPLICATED BY MECONIUM IN AMNIOTIC FLUID Status: Acute Current Visit: Yes (3) Early onset of delivery before 37 weeks SNOMED Code(s): 445664236 Code(s): O60.10X0 - LABOR W DELIVERY, UNSP TRIMESTER, UNSP Status: Acute Current Visit: Yes Qualifiers: Fetus number: single or unspecified fetus Qualified Code(s): O60.10X0 - labor with delivery, unspecified trimester, not applicable or unspecified (4) Liver and biliary tract disorders in , third trimester SNOMED Code(s): 92773452 Code(s): O26.613 - LIVER AND BILIARY TRACT DISORD IN , THIRD TRIMESTER Status: Acute Current Visit: Yes - Problem List Review Problem List Initiated/Reviewed/Updated: No - Plan Plan:: 1. Intrahepatic cholestasis of in a 36 week . Progressive worsening of liver function studies. Symptoms improved with hydroxyzine therapy. 2. well-being confirmed with serial BPP's in clinic and heart tone monitoring at present time. 3. Group B strep negative 4.. Patient plans to breast-feed 5. Patient is okay with epidural but would like to start with natural labor 6. History of miscarriages 2 7. She has suffered from some anxiety and depression during the course of the but is not on any medication. 8. Patient is received betamethasone 2 doses on 12/27/2019 and 12/28/2021 enhance likelihood of lung maturation. Plan: 1. Pitocin/artificial rupture membranes induction/augmentation of labor to affect delivery. 2. Laboratory testing consistent CBC, CMP, RPR upon admission 3. Epidural when necessary for patient as desired 4. Continuous electronic heart monitoring 5. Support breast-feeding decision. 6. Routine labor care 7. Anticipate normal spontaneous vaginal delivery 8. Pediatrics has been informed of patient's induction and diagnosis
[2020-01-01] MEDS ORDERED: Acetaminophen 325 MG Tab PO PRN (15:24)
[2020-01-01] MEDS ORDERED: Witch Hazel Medicated Pads 40/Jar TOP PRN (15:24)
[2020-01-01] MEDS ORDERED: Docusate Sodium 100 MG Cap PO PRN (15:24)
[2020-01-01] MEDS: Ibuprofen 600 MG Tab PO PRN (19:58)
[2020-01-02] MEDS: Ibuprofen 600 MG Tab PO PRN ×2 (05:31→22:20)
--- NOTE | 2020-01-02 07:33 | PCM48HPAN ---
Post Anesthesia Note - EVALUATION WITHIN 48HRS OF ANESTHETIC Vital Signs in Normal Range: Yes Patient Participated in Evaluation: Yes Respiratory Function Stable: Yes Airway Patent: Yes Cardiovascular Function Stable: Yes Hydration Status Stable: Yes Pain Control Satisfactory: Yes Nausea and Vomiting Control Satisfactory: Yes Mental Status Recovered: Yes Vital Signs: Last Vital Signs Temp 36.5 C 01/02/20 05:27 Pulse 65 01/02/20 05:27 Resp 15 01/02/20 05:27 BP 117/72 01/02/20 05:27 Pulse Ox 97 01/02/20 05:27 - COMMENTS/OBSERVATIONS Free Text/Narrative:: no anesthesia complications noted
[2020-01-02] MEDS: hydrOXYzine HCl 50 MG Tab PO PRN (16:25)
[2020-01-03] MEDS: Ibuprofen 600 MG Tab PO PRN (02:03)
--- NOTE | 2020-01-03 05:33 | PCM.DCSUM1 ---
Discharge Summary - Hospital Course Free Text/Narrative:: Karl is a 24-year-old multigravida white female who was admitted on the evening of 12/31/2019 with a diagnosis of cholestasis of at 35-6/7 weeks gestational age. I was to proceed with Pitocin/artificial rupture membranes induction of labor. The liver function studies were progressively increasing over the course of last week and patient is reporting severe pruritus. testing with biophysical profiles was reassuring. The procedure of induction of labor was discussed with patient. She was aware of the risks, benefits, alternatives of care as she had been through induction with her previous . Patient was started on Pitocin and progressed steadily towards complete cervical dilation. She delivered a liveborn female with Apgars of 9 and 9 left occiput anterior position at 1323 hrs. on 01/01/2020. There was lightly stained amniotic fluid. Nose and mouth were bulb suctioned and baby was placed on mom's abdomen. The cord was allowed to pulsate for short period time and then was clamped 2 and cut. patient is done very well. She is breast-feeding. She has minimal lochia, was voiding well and is relating without concerns. Her itching has resolved. Her vital signs been stable. Baby has done very well. Patient is desiring discharge home. Condition: Good Diagnosis: Stroke: No - Discharge Data Discharge Date: 01/03/20 Discharge Disposition: Home, Self-Care 01 Condition: Good - Referral to Home Health Primary Care Physician: Jay Jay Grier MD - Patient Instructions Diet: Regular Diet as Tolerated (Diet with increase calories and calcium is recommended) Activity: As Tolerated (No intercourse tampons until bleeding resolves) Driving: May Drive Today Showering/Bathing: May Shower (May take a bath) Notify Provider of: Fever, Increased Pain, Swelling and Redness, Nausea and/or Vomiting - Discharge Plan Home Medications: Home Meds Ferrous Sulfate [Iron] 325 mg PO DAILY 12/31/19 [History] Pnv No.95/Ferrous Fum/Folic AC [ Caplet] 1 tab PO DAILY 12/31/19 [ History] Acetaminophen [Tylenol] 650 mg PO Q4H PRN tablet 01/03/20 [Rx] Ibuprofen [Motrin] 600 mg PO Q4H PRN tablet 01/03/20 [Rx] Referrals: Jay Jay Grier MD [Primary Care Provider] - (Return to clinicDr. Grier1 week.) - Discharge Summary/Plan Comment DC Time >30 min.: No Discharge Summary/Plan Comment: Discharge instructions: 1. Discharge home 2. Diet, activity and follow-up discussed with patient. Recommend nursing diet with increased calories and calcium. 3. Precautions given concern increased pain, bleeding, temperature, signs/ symptoms of DVT/PE. 4. Medications per home medication was printed, discussed with and given to the patient. 5. Return to clinic-Dr. Grier[facility] in 1 weeks. Diagnosis: 1. Intrahepatic cholestasis of -delivered at 36-0/7 weeks gestational age 2.Term -delivered Condition: Good - Patient Data Vitals - Most Recent: Last Vital Signs Temp 36.4 C 01/03/20 02:47 Pulse 59 L 01/03/20 02:47 Resp 16 01/03/20 02:47 BP 111/63 01/03/20 02:47 Pulse Ox 99 01/03/20 02:47 Weight - Most Recent: 99.932 kg I&O - Last 24 hours: Intake & Output 01/02/20 01/02/20 01/03/20 14:59 22:59 06:59 Intake Total 120 120 Balance 120 120 Lab Results - Last 24 hrs: Laboratory Results - last 24 hr 01/02/20 Range/Units 05:50 WBC 12.79 H (3.98-10.04) K/mm3 RBC 3.81 L (3.98-5.22) M/mm3 Hgb 10.3 L (11.2-15.7) gm/dl Hct 32.5 L (34.1-44.9) % MCV 85.3 (79.4-94.8) fl MCH 27.0 (25.6-32.2) pg MCHC 31.7 L (32.2-35.5) g/dl RDW Std Deviation 40.7 (36.4-46.3) fL Plt Count 243 (182-369) K/mm3 MPV 10.8 (9.4-12.3) fl Neut % (Auto) 68.6 (34.0-71.1) % Lymph % (Auto) 23.5 (19.3-51.7) % [place] % (Auto) 6.8 (4.7-12.5) % Eos % (Auto) 0.7 (0.7-5.8) Baso % (Auto) 0.2 (0.1-1.2) % Neut # (Auto) 8.78 H (1.56-6.13) K/mm3 Lymph # (Auto) 3.00 (1.18-3.74) K/mm3 [place] # (Auto) 0.87 H (0.24-0.36) K/mm3 Eos # (Auto) 0.09 (0.04-0.36) K/mm3 Baso # (Auto) 0.02 (0.01-0.08) K/mm3 Med Orders - Current: Current Medications Acetaminophen (Tylenol) 650 mg PO Q4H PRN PRN Reason: mild pain or fever Last Admin: 01/02/20 16:25 Dose: 650 mg Docusate Sodium (Colace) 100 mg PO BID PRN PRN Reason: Constipation Last Admin: 01/01/20 19:59 Dose: 100 mg Hydroxyzine HCl (Atarax) 50 mg PO Q6HR PRN PRN Reason: Itching Last Admin: 01/02/20 16:25 Dose: 50 mg Ibuprofen (Motrin) 600 mg PO Q4H PRN PRN Reason: Mild pain or fever Last Admin: 01/03/20 02:03 Dose: 600 mg [place] (Tucks) 1 pad TOP ASDIRECTED PRN PRN Reason: Perineal Comfort Measure Discontinued Medications Bupivacaine HCl (Sensorcaine-Mpf 0.25%) 10 ml .ROUTE .STK-MED ONE Stop: 01/01/20 00:01 Ephedrine Sulfate (Ephedrine Sulfate) 5 mg IVPUSH ASDIRECTED PRN PRN Reason: Hypotension Fentanyl (Sublimaze) 100 mcg EPIDUR Q3H PRN PRN Reason: Pain Last Admin: 01/01/20 07:56 Dose: 100 mcg Fentanyl/Bupivacaine HCl (Fentanyl/Bupivacaine/Ns 2 Mcg-0.125% 100 Ml) 100 ml EPIDUR ASDIRECTED CECILE Last Admin: 01/01/20 07:55 Dose: 100 ml Hydroxyzine HCl (Atarax) 50 mg PO TID PRN PRN Reason: Itching Last Admin: 01/01/20 09:39 Dose: 50 mg Lactated Ringer's (Ringers, Lactated) 1,000 mls @ 100 mls/hr IV ASDIRECTED CECILE Last Admin: 01/01/20 08:00 Dose: 100 mls/hr Oxytocin/Lactated Ringer's (Pitocin In Lr 10 Units/1,000 Ml) 10 unit in 1,000 mls @ 12 mls/hr IV TITRATE CECILE; Protocol Last Titration: 01/01/20 04:25 Dose: 20 munits/min, 120 mls/hr Oxytocin/Lactated Ringer's (Pitocin In Lr 10 Units/1,000 Ml) 10 unit in 1,000 mls @ 500 mls/hr IV .CONTINUOUS CECILE Oxytocin/Lactated Ringer's (Pitocin In Lr 20 Units/1,000 Ml) 20 unit in 1,000 mls @ 60 mls/hr IV TITRATE CECILE; Protocol Last Admin: 01/01/20 05:14 Dose: 60 mls/hr Phenylephrine HCl 1 mg/ Sodium (Chloride) 10.1 mls @ 1 mls/sec IV TITRATE CECILE; Protocol Nalbuphine HCl (Nubain) 10 mg IVPUSH Q2H PRN PRN Reason: Pain Ondansetron HCl (Zofran Odt) 4 mg PO Q4H PRN PRN Reason: Nausea/Vomiting Ondansetron HCl (Zofran) 4 mg IVPUSH ONETIME PRN PRN Reason: Nausea/Vomiting Sodium Chloride (Saline Flush) 10 ml FLUSH ASDIRECTED PRN PRN Reason: Keep Vein Open
== END 2020-01-03 09:05 | disposition home or self-care (01) | DRG 560 ==
LOC: JD.OB 13:23 → OBSVTOIN 01-01 13:23 → JD.OB 01-01 14:05
PROVIDERS: ADMIT Obstetrics & Gynecology; ATTEND Obstetrics & Gynecology
PROC: 10E0XZZ Delivery of Products of Conception, External Approach (ICD-10-PCS; principal; 2020-01-01)
PROC: 10907ZC Drainage of Amniotic Fluid, Therapeutic from Products of Conception, Via Natural or Artificial Opening (ICD-10-PCS; 2020-01-01)
PROC: 3E0R3BZ Introduction of Anesthetic Agent into Spinal Canal, Percutaneous Approach (ICD-10-PCS; 2020-01-01)
DX: O26.62 Liver and biliary tract disorders in childbirth (principal); K83.1 Obstruction of bile duct; O99.02 Anemia complicating childbirth; D64.9 Anemia, unspecified; O60.14X0 Preterm labor third trimester with preterm delivery third trimester, not applicable or unspecified; Z3A.36 36 weeks gestation of pregnancy; Z37.0 Single live birth; Z79.899 Other long term (current) drug therapy
CPT/HCPCS: 01967; 36415; 51702; 59025; 59409; 80053; 85025; 86592; A9270-GY; J2590; J3010; J3490; J7120